=== PATIENT | male | born 1935 | race African-American/Black ===

== ENCOUNTER → 2016-02-17 | Outpatient (CLI) | payer MEDICARE, MEDICAID | LOC: RAD 13:32 | PROVIDERS: ATTEND Urology | DX: C61 Malignant neoplasm of prostate (principal); R10.2 Pelvic and perineal pain | CPT/HCPCS: 74177; 82565 ==

== ENCOUNTER 2016-06-28 08:07 | Emergency (ER) | payer MEDICARE, MEDICAID ==
[2016-06-28 08:52] LABS: ABSOLUTE EOSINOPHILS # (AUTO) 0.1 10^3/uL (0.0-0.6); ABSOLUTE LYMPHOCYTES (AUTO) 1.4 10^3/uL (0.5-4.7); ABSOLUTE MONOCYTES (AUTO) 0.5 10^3/uL (0.1-1.4); ABSOLUTE NEUT (AUTO) 2.3 10^3/uL (1.7-8.2); EOSINOPHILS % (AUTO) 1.6 % (0-6); HEMATOCRIT 30.8 % (37.9-51.0); HEMOGLOBIN 10.3 g/dL (13.5-17.0); HGB HCT DIFFERENCE 0.1; MEAN CORPUSCULAR HEMOGLOBIN 26.7 pg (27.0-33.4); MEAN CORPUSCULAR HGB CONC 33.4 g/dL (32.0-36.0); MEAN CORPUSCULAR VOLUME 80 fl (80-97); MONOCYTES % (AUTO) 10.7 % (3-13); RED BLOOD COUNT 3.85 10^6/uL (4.35-5.55); RED CELL DISTRIBUTION WIDTH 15.3 % (11.5-14.0); SEGMENTED NEUTROPHILS % (AUTO) 54.7 % (42-78); WHITE BLOOD COUNT 4.2 10^3/uL (4.0-10.5)
[2016-06-28 09:14] LABS: ALANINE AMINOTRANSFERASE 29 U/L (21-72); ALKALINE PHOSPHATASE 76 U/L (38-126); ANION GAP 9 (5-19); ASPARTATE AMINO TRANSFERASE 25 U/L (17-59); BILIRUBIN,DIRECT 0.2 mg/dL (0.0-0.4); BILIRUBIN,TOTAL 0.5 mg/dL (0.2-1.3); BLOOD UREA NITROGEN 26 mg/dL (7-20); CALCIUM 9.3 mg/dL (8.4-10.2); CARBON DIOXIDE 23 mmol/L (22-30); CHLORIDE 107 mmol/L (98-107); CREATINE KINASE 118 U/L (55-170); CREATININE RESULT 1.23 mg/dL (0.52-1.25); GLUCOSE 138 mg/dL (75-110); POTASSIUM 3.9 mmol/L (3.6-5.0); SODIUM 138.9 mmol/L (137-145); TOTAL PROTEIN 7.1 g/dL (6.3-8.2)
--- NOTE | 2016-06-28 09:19 | ER Document Report ---
ED Cardiac - General Mode of Arrival: Ambulatory Information source: Patient TRAVEL OUTSIDE OF THE [place] IN LAST 30 DAYS: No - HPI Patient complains to provider of: Chest pain, Shortness of breath Cardiac risk factors: Smoker Associated symptoms: Other - see notes above <ALIRIO ROQUE - Last Filed: 06/28/16 09:25> <CARLINE HECTOR - Last Filed: 06/30/16 10:21> - General Chief Complaint: Chest Pain Stated Complaint: CHEST PAIN Time Seen by Provider: 06/28/16 09:10 Notes: 80 year old male with history of hypertension, COPD, and LA (July 2015) presents to the ED accompanied by his home nurse complaining of chest pain that started 1 week ago. Home nurse reports that she takes care of the patient every morning and today is the first she has hear of him complaining of the chest pain. Patient also reports having a 'chest and head cold' and a cough that exacerbates the chest pain. The patient denies fever, vomiting or diarrhea, but the nurse reports the patient is increasingly short of breath (more than usual) . The patient is usually able to walk around the apartment, but now is short of breath with exertion and the nurse has noticed the patient is staggering and off balance. Patient had an LA in July 2015, but did not have a heart catheterization or stent placed. Patient's primary care provider is Dr. Kirkpatrick and he last saw him on 05/24/2016. (ALIRIO ROQUE) - Related Data Allergies/Adverse Reactions: aspirin Allergy (Verified 06/28/16 08:19) Past Medical History - General Information source: Patient - Social History Smoking Status: Current Every Day Smoker Chew tobacco use (# tins/day): No Frequency of alcohol use: None Drug Abuse: None Family History: Reviewed & Not Pertinent Patient has suicidal ideation: No Patient has homicidal ideation: No - Past Medical History Cardiac Medical History: Reports: Hx Heart Attack - July 2015, Hx Hypertension Pulmonary Medical History: Reports: Hx COPD Endocrine Medical History: Reports: Hx Diabetes Mellitus Type 2 Renal/ Medical History: Denies: Hx Peritoneal Dialysis Psychiatric Medical History: Denies: Hx Depression - Immunizations Hx Diphtheria, Pertussis, Tetanus Vaccination: No Hx Pneumococcal Vaccination: 12/05/14 <ALIRIO ROQUE - Last Filed: 06/28/16 09:25> Review of Systems - Review of Systems Constitutional: See HPI, Recent illness - 'chest and head cold'. denies: Fever EENT: No symptoms reported Cardiovascular: See HPI, Chest pain Respiratory: See HPI, Cough, Short of breath Gastrointestinal: No symptoms reported. denies: Diarrhea, Nausea, Vomiting Genitourinary: No symptoms reported Male Genitourinary: No symptoms reported Musculoskeletal: No symptoms reported Skin: No symptoms reported Hematologic/Lymphatic: No symptoms reported Neurological/Psychological: See HPI, Gait changes - 'staggering' -: Yes All other systems reviewed and negative <ALIRIO ROQUE - Last Filed: 06/28/16 09:25> Physical Exam - General General appearance: Alert In distress: None - HEENT Head: Normocephalic, Atraumatic Eyes: Normal Extraocular movements intact: Yes Pupils: PERRL - Respiratory Respiratory status: No respiratory distress Chest status: Nontender Breath sounds: Rhonchi - bilateral Chest palpation: Normal - Cardiovascular Rhythm: Regular Heart sounds: Normal auscultation - Abdominal Inspection: Normal Distension: No distension Tenderness: Nontender - Back Back: Normal - Extremities General upper extremity: Normal inspection, Normal ROM General lower extremity: Normal inspection, Normal ROM - Neurological Neuro grossly intact: Yes Cognition: Normal Orientation: AAOx4 [place] Coma Scale Eye Opening: Spontaneous [place] Coma Scale Verbal: Oriented [place] Coma Scale Motor: Obeys Commands [place] Coma Scale Total: 15 Speech: Normal - Psychological Associated symptoms: Normal affect, Normal mood - Skin Skin Temperature: Warm Skin Moisture: Dry Skin Color: Normal <ALIRIO ROQUE - Last Filed: 06/28/16 09:25> Course - Laboratory Result Diagrams: 06/28/16 08:35 06/28/16 08:35 <ALIRIO ROQUE - Last Filed: 06/28/16 09:25> - Laboratory Result Diagrams: 06/28/16 08:35 06/28/16 08:35 <CARLINE HECTOR - Last Filed: 06/30/16 10:21> - Re-evaluation Re-evalutation: 06/28/16 12:27 Patient presented to the emergency department with a chief complaint of cough "chest congestion and head cold. He did tell his family members that it has been going on for a week or so. His caregiver who sees him in the morning is at the bedside initially and then his sister. At the bedside he is coughing and has some bilateral rhonchi. Blood pressure on the chart to 96/71 immediately upon assessment in the bedside. Blood pressure was 134/61 afebrile not tachycardic no respiratory distress is not tachypneic with a 99% O2 sat on room air. No overt failure rales or lower extremity peripheral edema There is swelling no history of DVT or pulmonary emboli. EKG sinus at 60 bpm with no acute ST segment elevation or depression. Chest x-ray COPD laboratory evaluation including troponin negative no white count elevation CT of the chest COPD no acute pulmonary emboli. Patient complained of chest pain with coughing only intermittent for about 5-6 days denies any chest pain currently is not exertional in nature as it sharp and stabbing when he takes a deep breath or cough. At this point patient is hemodynamically stable no active concerns for sepsis COPD exacerbation no pulmonary emboli not concerned at this moment is acute cardiac event or unstable angina. Will discharge on albuterol prednisone 1-2 day follow-up primary care physician and discuss specific reasons for ED return sooner (CARLINE HECTOR) - Vital Signs Vital signs: Temp Pulse Resp BP Pulse Ox 97.8 F 67 16 157/62 H 98 06/28/16 12:37 06/28/16 08:20 06/28/16 12:38 06/28/16 12:28 06/28/16 12:38 - Laboratory Laboratory results interpreted by me: 06/28/16 06/28/16 08:35 08:35 RBC 3.85 L Hgb 10.3 L Hct 30.8 L MCH 26.7 L RDW 15.3 H BUN 26 H Est GFR (Non-Af Amer) 56 L Glucose 138 H Discharge <ALIRIO ROQUE - Last Filed: 06/28/16 09:25> <CARLINE HECTOR - Last Filed: 06/30/16 10:21> - Discharge Clinical Impression: upper respiratory infection, chest pain nonspecific COPD (chronic obstructive pulmonary disease) Qualifiers: COPD type: unspecified COPD Qualified Code(s): J44.9 - Chronic obstructive pulmonary disease, unspecified Condition: Stable Disposition: HOME, SELF-CARE Additional Instructions: Chronic Obstructive Lung Disease You have chronic obstructive lung disease (COPD). The symptoms come from emphysema (damage to small airways, with trapping of air in large sacks in the lung) and chronic bronchitis (repeated infection and damage to larger airways). The cause is almost always cigarette smoking, although dust exposure, asthma, and infections contribute. You should avoid fumes, dust, and smoke (especially tobacco smoke). Your condition will flare from time to time. There is no cure, but the symptoms can be treated. Bronchodilators (asthma medicine) are often helpful. Antibiotics help when infection is present. When shortness of breath is severe, we may prescribe cortisone medication. If medicine doesn't help enough, we can arrange for you to have an oxygen tank at home. Notify your doctor at once if sputum becomes thick, foul, or bloody, if you develop a fever or chest pain, or if your shortness of breath worsens. Prescriptions: Prednisone [Deltasone 20 mg Tablet] 3 tab PO DAILY 5 Days Referrals: AYLA KIRKPATRICK MD [Primary Care Provider] - Follow up as needed Scribe Attestation: 06/28/16 12:26 I personally performed the services described in the documentation reviewed the documentation recorded by my scribe in my presence and it accurately and completely records my words and actions (CARLINE HECTOR) Scribe Documentation - Scribe Written by Buster:: Buster Stewart, 06/28/2016 0934 acting as scribe for :: Johnathan <ALIRIO ROQUE - Last Filed: 06/28/16 09:25>
[2016-06-28 09:27] LABS: CREATINE KINASE MB 1.52 ng/mL (<4.55); TROPONIN I < 0.012 ng/mL
[2016-06-28] MEDS ORDERED: METHYLPREDNISOLONE INJ 125 MG/2 ML SDV IV ONE (09:36)
--- NOTE | 2016-06-28 10:38 | EKG REPORT ---
SEVERITY:- BORDERLINE ECG - SINUS RHYTHM LEFT AXIS DEVIATION BORDERLINE T ABNORMALITIES, INFERIOR LEADS : Confirmed by: Jaylyn Richards MD 28-Jun-2016 10:37:25
[2016-06-28 12:29] VITALS: BP 157/62
== END 2016-06-28 12:44 | disposition home or self-care (01) ==
LOC: ER 08:07
DX: J06.9 Acute upper respiratory infection, unspecified (principal); J44.9 Chronic obstructive pulmonary disease, unspecified; R07.9 Chest pain, unspecified; R06.02 Shortness of breath; I10 Essential (primary) hypertension; I25.2 Old myocardial infarction; R05 Cough; R26.0 Ataxic gait; R26.81 Unsteadiness on feet; E11.9 Type 2 diabetes mellitus without complications; F17.200 Nicotine dependence, unspecified, uncomplicated; Z88.6 Allergy status to analgesic agent
CPT/HCPCS: 93005; 99285; 96374; 36415; 82553; 82550; 85025; 80053; 84484; 71010; 71275; 93010; J2930

== ENCOUNTER 2016-09-04 13:34 | Emergency (ER) | payer MEDICARE, MEDICAID ==
--- NOTE | 2016-09-04 14:31 | ER Document Report ---
ED Fall - General Chief Complaint: Fall Stated Complaint: FALL/HEAD INJURY Time Seen by Provider: 09/04/16 14:23 Notes: Patient tripped on a possible approximately 9 AM this morning. Initially an ambulance was called the patient would not go to the ambulance because they were unable to assure him that he can get a ride home. Patient states that there was no loss of consciousness. He is brought in by a neighbor. Neighbor states he does not know the patient well but he has seen walking around the neighborhood. There is no apparent new deficits or confusion. Patient does complain of headache. Denies any back pain, chest pain, abdominal pain, extremity pain. He denies neck pain. He states his only pain is a headache. He states he thinks he may be on a blood thinner but does not know the name of it. There is been no vomiting. Patient's pain is constant. It is moderate. It is an aching sensation. It does not radiate. Nothing makes it better or worse. TRAVEL OUTSIDE OF THE [place] IN LAST 30 DAYS: No - Related data Allergies/Adverse Reactions: aspirin Allergy (Verified 09/04/16 13:44) Past Medical History - General Information source: Patient, Friend - Social History Smoking Status: Current Every Day Smoker Frequency of alcohol use: None Drug Abuse: None Family History: Reviewed & Not Pertinent Patient has suicidal ideation: No Patient has homicidal ideation: No - Past Medical History Cardiac Medical History: Reports: Hx Heart Attack - July 2015, Hx Hypertension Pulmonary Medical History: Reports: Hx COPD Endocrine Medical History: Reports: Hx Diabetes Mellitus Type 2 Renal/ Medical History: Denies: Hx Peritoneal Dialysis Psychiatric Medical History: Denies: Hx Depression - Immunizations Hx Diphtheria, Pertussis, Tetanus Vaccination: No Hx Pneumococcal Vaccination: 12/05/14 Review of Systems - Review of Systems Constitutional: denies: Chills, Fever Cardiovascular: denies: Chest pain, Palpitations Respiratory: denies: Cough, Short of breath Gastrointestinal: denies: Abdominal pain, Diarrhea, Vomiting Neurological/Psychological: Confusion -: Yes All other systems reviewed and negative Physical Exam - Vital signs Vitals: Temp Pulse Resp BP Pulse Ox 98.6 F 69 16 135/82 H 97 09/04/16 13:45 09/04/16 13:45 09/04/16 13:45 09/04/16 13:45 09/04/16 13:45 - General General appearance: Appears well, Alert In distress: None - HEENT Head: Normocephalic, Abrasions, Other - There is a large mildly tender abrasion of the central forehead. Bleeding well controlled. Conjunctiva: Normal Pupils: PERRL Nasal: Normal Mouth/Lips: Normal Mucous membranes: Moist Pharynx: Normal Neck: Normal - Respiratory Respiratory status: No respiratory distress Chest status: Nontender Breath sounds: Normal Chest palpation: Normal - Cardiovascular Rhythm: Regular Heart sounds: Normal auscultation Murmur: No - Abdominal Inspection: Normal Distension: No distension Bowel sounds: Normal Tenderness: Nontender Organomegaly: No organomegaly - Back Back: Normal, Nontender - Extremities General upper extremity: Normal inspection, Nontender, Normal color, Normal ROM , Normal temperature General lower extremity: Normal inspection, Nontender, Normal color, Normal ROM , Normal temperature, Normal weight bearing. No: Alondra's sign - Neurological Cognition: Confused Orientation: Disoriented to time [place] Coma Scale Eye Opening: Spontaneous [place] Coma Scale Verbal: Confused [place] Coma Scale Motor: Obeys Commands [place] Coma Scale Total: 14 Speech: Normal Cranial nerves: Normal Cerebellar coordination: Normal Motor strength normal: LUE, RUE, LLE, RLE - Psychological Associated symptoms: Normal affect, Normal mood Course - Re-evaluation Re-evalutation: 09/04/16 15:30 pt has been stable throughout ED course. neighbor here and will take pt home. pt has home care per neighbor. - Vital Signs Vital signs: Temp Pulse Resp BP Pulse Ox 98.6 F 69 16 135/82 H 97 09/04/16 13:45 09/04/16 13:45 09/04/16 13:45 09/04/16 13:45 09/04/16 13:45 - Laboratory Result Diagrams: 09/04/16 14:52 09/04/16 14:52 Laboratory results interpreted by me: 09/04/16 14:52 WBC 3.4 L RBC 3.53 L Hgb 9.4 L Hct 28.7 L MCH 26.8 L RDW 14.8 H Discharge - Discharge Condition: Stable Disposition: HOME, SELF-CARE Instructions: Head Injury Precautions ([facility]) Additional Instructions: Please call your primary doctor today to schedule a recheck as soon as possible.
[2016-09-04 15:03] LABS: ABSOLUTE EOSINOPHILS # (AUTO) 0.1 10^3/uL (0.0-0.6); ABSOLUTE LYMPHOCYTES (AUTO) 1.3 10^3/uL (0.5-4.7); ABSOLUTE MONOCYTES (AUTO) 0.4 10^3/uL (0.1-1.4); ABSOLUTE NEUT (AUTO) 1.7 10^3/uL (1.7-8.2); BASOPHILS % (AUTO) 0.8 % (0-2); EOSINOPHILS % (AUTO) 1.9 % (0-6); HEMATOCRIT 28.7 % (37.9-51.0); HEMOGLOBIN 9.4 g/dL (13.5-17.0); HGB HCT DIFFERENCE -0.5; LYMPHOCYTES % (AUTO) 37.5 % (13-45); MEAN CORPUSCULAR HEMOGLOBIN 26.8 pg (27.0-33.4); MEAN CORPUSCULAR HGB CONC 32.9 g/dL (32.0-36.0); MEAN CORPUSCULAR VOLUME 81 fl (80-97); RED BLOOD COUNT 3.53 10^6/uL (4.35-5.55); RED CELL DISTRIBUTION WIDTH 14.8 % (11.5-14.0); SEGMENTED NEUTROPHILS % (AUTO) 48.8 % (42-78); WHITE BLOOD COUNT 3.4 10^3/uL (4.0-10.5)
--- NOTE | 2016-09-04 15:13 | RADIOLOGY REPORT (SQ) ---
EXAM DESCRIPTION: CT HEAD WITHOUT COMPLETED DATE/TIME: 09/04/2016 3:04 pm REASON FOR STUDY: fall/tai/?blood thinner COMPARISON: None. TECHNIQUE: Axial images acquired through the brain without intravenous contrast. Images reviewed wi th bone, brain and subdural windows. Images stored on PACS. All CT scanners at this facility use dose modulation, iterative reconstruction, and/or weight based d osing when appropriate to reduce radiation dose to as low as reasonably achievable (ALARA). [facility]: Dose Right [facility]: CareDose [facility]: Dose Right [facility]: Teradose 4D [facility]: [employer] RADIATION DOSE: mGy. LIMITATIONS: None. FINDINGS: VENTRICLES: Prominent. CEREBRUM: No masses. No hemorrhage. No midline shift. Areas of low density in the white matter mos t likely due to chronic micro-vascular ischemic change. No evidence for acute infarction. CEREBELLUM: No masses. No hemorrhage. No alteration of density. No evidence for acute infarction. EXTRAAXIAL SPACES: Mild age-related involutional change. No fluid collections. No masses. ORBITS AND GLOBE: No intra- or extraconal masses. Normal contour of globe without masses. CALVARIUM: No fracture. PARANASAL SINUSES: No fluid or mucosal thickening. SOFT TISSUES: No mass or hematoma. OTHER: No other significant finding. IMPRESSION: MILD CHRONIC CHANGES OF ATROPHY AND MICROVASCULAR ISCHEMIA. NO ACUTE PROCESS. TECHNICAL DOCUMENTATION: JOB ID: [id number] Quality ID # [id number]: Final reports with documentation of one or more dose reduction techniques (e.g., Au tomated exposure control, adjustment of the mA and/or kV according to patient size, use of iterative reconstruction technique) 2010 [employer]- All Rights Reserved
[2016-09-04 15:16] LABS: ANION GAP 11 (5-19); BLOOD UREA NITROGEN 17 mg/dL (7-20); CALCIUM 8.9 mg/dL (8.4-10.2); CARBON DIOXIDE 24 mmol/L (22-30); CHLORIDE 104 mmol/L (98-107); CREATININE RESULT 1.15 mg/dL (0.52-1.25); GLUCOSE 75 mg/dL (75-110); POTASSIUM 4.1 mmol/L (3.6-5.0); SODIUM 139.4 mmol/L (137-145)
[2016-09-04 15:25] LABS: APPEARANCE,URINE CLEAR; BILIRUBIN,URINE NEGATIVE (NEGATIVE); GLUCOSE, URINE NEGATIVE (NEGATIVE); KETONES,URINE NEGATIVE (NEGATIVE); LEUKOCYTE ESTERASE,URINE NEGATIVE (NEGATIVE); NITRITE,URINE NEGATIVE (NEGATIVE); PROTEIN,URINE NEGATIVE (NEGATIVE); URINE SPECIFIC GRAVITY 1.016; UROBILINOGEN,URINE NEGATIVE mg/dL (<2.0)
[2016-09-04] MEDS ORDERED: TRAMADOL HCL 50 MG TABLET PO ONE (15:35)
[2016-09-04 16:03] VITALS: BP 160/63
== END 2016-09-04 15:50 | disposition home or self-care (01) ==
LOC: ER 13:34
DX: S09.90XA Unspecified injury of head, initial encounter (principal); W01.0XXA Fall on same level from slipping, tripping and stumbling without subsequent striking against object, initial encounter; F17.200 Nicotine dependence, unspecified, uncomplicated; I25.2 Old myocardial infarction; R41.0 Disorientation, unspecified
CPT/HCPCS: 99284; 36415; 85025; 80048; 81001; 70450; A9270

== ENCOUNTER 2016-12-19 06:23 | Day surgery (SDC) | payer MEDICARE, MEDICAID ==
[~2016-12-19 06:23] MED LIST: KETOROLAC TROMETHAMINE 0.45% 4 DROP/0.4 ML DROPERETTE OS PRN
[2016-12-19] MEDS: TETRACAINE HCL 0.5% OPH SOLN 0.6 ML DROPERETTE OS PRN ×3 (06:50→07:33)
[2016-12-19] MEDS: TROPICAMIDE 1% OPH SOLN 3 ML OS PRN ×3 (06:51→07:17)
[2016-12-19] MEDS: CYCLOPENTOLATE 0.2%/PHENYLEPHRINE 1% OPH SOLN 2 ML OS PRN ×3 (06:51→07:17)
[2016-12-19] MEDS: BESIFLOXACIN HCL 0.6% OPH SUSP 5 ML BOTTLE OS PRN ×4 (06:51→08:12)
[2016-12-19] MEDS ORDERED: MIDAZOLAM 2 MG/2 ML INJ ONE (06:56)
[2016-12-19] MEDS ORDERED: FENTANYL CITRATE INJ/PF 100 MCG/2 ML AMPUL ONE (06:56)
[2016-12-19] MEDS ORDERED: DEXTROSE 50%-WATER 25 GM/50 ML DISP.SYRIN IV ONE (07:02)
[2016-12-19] MEDS ORDERED: EPINEPHRINE INJ/PF 1 MG/1 ML AMPULE ONE (07:04)
[2016-12-19] MEDS ORDERED: LIDOCAINE 1% INJ-PF (10 MG/ML) 30 ML SDV ONE (07:05)
[2016-12-19] MEDS ORDERED: CHONDR SU A NA/HYALUR INTRAOC KIT (SURGICARE) ONE (07:05)
[2016-12-19] MEDS ORDERED: CHONDR SU A NA/HYALUR SOD 0.5 ML DISP.SYRIN ONE (07:52)
[2016-12-19] MEDS ORDERED: ACETYLCHOLINE CHLORIDE 20 MG/2 ML KIT ONE (08:04)
[2016-12-19] MEDS: TOBRAMYCIN SULFATE/DEXAMETH OPH OINTMENT 3.5 GM ONE ×2 (08:12)
[2016-12-19] MEDS ORDERED: ACETAZOLAMIDE SODIUM INJ 500 MG VIAL ONE (08:14)
[2016-12-19] MEDS ORDERED: WATER FOR INJECTION,STERILE 10 ML SDV ONE (08:17)
== END 2016-12-19 08:58 | disposition home or self-care (01) ==
LOC: SC 06:23
PROVIDERS: ATTEND Ophthalmology
PROC: 08RK3JZ Replacement of Left Lens with Synthetic Substitute, Percutaneous Approach (ICD-10-PCS; principal; 2016-12-19 07:30)
DX: H25.12 Age-related nuclear cataract, left eye (principal); H40.1111 Primary open-angle glaucoma, right eye, mild stage; E11.9 Type 2 diabetes mellitus without complications; K21.9 Gastro-esophageal reflux disease without esophagitis; I10 Essential (primary) hypertension; E78.00 Pure hypercholesterolemia, unspecified; N40.0 Benign prostatic hyperplasia without lower urinary tract symptoms; Z79.84 Long term (current) use of oral hypoglycemic drugs; Z79.899 Other long term (current) drug therapy; Z88.6 Allergy status to analgesic agent; Z85.46 Personal history of malignant neoplasm of prostate
CPT/HCPCS: 82962; 66984; V2632; J1120; J3490 ×7; J2250; A9270; J0171; J3010; 142

== ENCOUNTER 2017-01-16 09:06 | Day surgery (SDC) | payer MEDICARE, MEDICAID ==
[~2017-01-16 09:06] MED LIST changes: +KETOROLAC TROMETHAMINE 0.45% 4 DROP/0.4 ML DROPERETTE OD PRN; -KETOROLAC TROMETHAMINE 0.45% 4 DROP/0.4 ML DROPERETTE OS PRN; +MIDAZOLAM 2 MG/2 ML INJ ONE
[2017-01-16] MEDS ORDERED: PHENYLEPHRINE/KETOROLAC 1%-0.3% 4 ML VIAL ONE (09:25)
[2017-01-16] MEDS ORDERED: CHONDR SU A NA/HYALUR INTRAOC KIT (SURGICARE) ONE (09:25)
[2017-01-16] MEDS ORDERED: LIDOCAINE 1% INJ-PF (10 MG/ML) 30 ML SDV ONE (09:25)
[2017-01-16] MEDS: TETRACAINE HCL 0.5% OPH SOLN 0.6 ML DROPERETTE OD PRN ×3 (09:33→09:56)
[2017-01-16] MEDS: TROPICAMIDE 1% OPH SOLN 3 ML OD PRN ×3 (09:33→09:54)
[2017-01-16] MEDS: CYCLOPENTOLATE 0.2%/PHENYLEPHRINE 1% OPH SOLN 2 ML OD PRN ×3 (09:34→09:54)
[2017-01-16] MEDS: BESIFLOXACIN HCL 0.6% OPH SUSP 5 ML BOTTLE OD PRN ×4 (09:34→10:26)
[2017-01-16] MEDS: TOBRAMYCIN SULFATE/DEXAMETH OPH OINTMENT 3.5 GM ONE ×2 (10:26)
[2017-01-16] MEDS ORDERED: MIDAZOLAM 2 MG/2 ML INJ ONE (11:10)
== END 2017-01-16 11:17 | disposition home or self-care (01) ==
LOC: SC 09:06
PROVIDERS: ATTEND Ophthalmology
PROC: 089230Z Drainage of Right Anterior Chamber with Drainage Device, Percutaneous Approach (ICD-10-PCS; 2017-01-16)
PROC: 08RJ3JZ Replacement of Right Lens with Synthetic Substitute, Percutaneous Approach (ICD-10-PCS; principal; 2017-01-16 09:45)
DX: H25.11 Age-related nuclear cataract, right eye (principal); H40.1111 Primary open-angle glaucoma, right eye, mild stage; Z98.42 Cataract extraction status, left eye; K21.9 Gastro-esophageal reflux disease without esophagitis; E11.9 Type 2 diabetes mellitus without complications; I10 Essential (primary) hypertension; M19.90 Unspecified osteoarthritis, unspecified site; F17.210 Nicotine dependence, cigarettes, uncomplicated; Z79.899 Other long term (current) drug therapy; Z79.84 Long term (current) use of oral hypoglycemic drugs; Z88.6 Allergy status to analgesic agent; Z85.46 Personal history of malignant neoplasm of prostate
CPT/HCPCS: 66984; 0191T; 82962; C1783; V2630; J2250; J3490 ×3; A9270; C9447; 142

== ENCOUNTER 2017-06-20 11:36 | Inpatient (IN) | payer MEDICARE, MEDICAID ==
--- NOTE | 2017-06-20 12:24 | ER Document Report ---
ED Extremity Problem, Lower - General Chief Complaint: Ankle Pain Stated Complaint: DIFFICULTY WALKING Time Seen by Provider: 06/20/17 11:53 Notes: 81-year-old male to emergency department complaining of bilateral foot and ankle pain. Patient is a poor historian. By report he called EMS because his feet were hurting. When EMS arrived the smelled smoke in the house. Patient was awake and alert and in no acute distress. Patient transported here for evaluation. Carboxyhemoglobin ordered on arrival. Patient denies any respiratory distress. Complains of mostly having pain in the left ankle. Also complaining of pain in the right foot and ankle. TRAVEL OUTSIDE OF THE [place] IN LAST 30 DAYS: No - HPI Patient complains to provider of: Pain Location: Ankle, Foot Where: Home - Related Data Allergies/Adverse Reactions: aspirin Allergy (Verified 06/20/17 11:56) Past Medical History - General Information source: Patient - Social History Smoking Status: Smoker,Current Status Unk Cigarette use (# per day): No Frequency of alcohol use: None Drug Abuse: None Lives with: Alone Family History: Reviewed & Not Pertinent - Past Medical History Cardiac Medical History: Reports: Hx Hypertension Denies: Hx Heart Attack Pulmonary Medical History: Reports: Hx COPD Denies: Hx Asthma Neurological Medical History: Denies: Hx Cerebrovascular Accident, Hx Seizures Endocrine Medical History: Reports: Hx Diabetes Mellitus Type 2 Renal/ Medical History: Denies: Hx Peritoneal Dialysis GI Medical History: Denies: Hx Hepatitis, Hx Hiatal Hernia, Hx Ulcer Psychiatric Medical History: Denies: Hx Depression Infectious Medical History: Denies: Hx Hepatitis Past Surgical History: Denies: Hx Open Heart Surgery, Hx Pacemaker - Immunizations Hx Diphtheria, Pertussis, Tetanus Vaccination: No Hx Pneumococcal Vaccination: 12/05/14 Review of Systems - Review of Systems Constitutional: denies: Fever, Malaise, Weakness EENT: denies: Double vision, Throat pain, Vertigo Cardiovascular: denies: Chest pain, Palpitations, Heart racing, Orthopnea Respiratory: denies: Cough, Hurts to breathe, Short of breath, Sputum, Wheezing Gastrointestinal: denies: Abdominal pain, Diarrhea, Nausea, Vomiting Genitourinary: denies: Burning, Dysuria, Discharge Musculoskeletal: See HPI, Ankle swelling, Other - Ankle pain, foot pain bilaterally. denies: Back pain, Gout, Joint pain Skin: denies: Dryness, Lesions, Lumps, Rash Hematologic/Lymphatic: denies: Anemia, Blood clots, Easy bleeding, Easy bruising Neurological/Psychological: denies: Confusion, Weakness, Numbness Physical Exam - Vital signs Vitals: Temp Pulse Resp BP Pulse Ox 98.0 F 74 16 133/82 H 97 06/20/17 11:55 06/20/17 11:55 06/20/17 11:55 06/20/17 11:55 06/20/17 11:55 Interpretation: Normal - General General appearance: Appears well, Alert - Respiratory Respiratory status: No respiratory distress Chest status: Nontender Breath sounds: Normal Chest palpation: Normal - Cardiovascular Rhythm: Regular Heart sounds: Normal auscultation Murmur: No - Abdominal Inspection: Normal Distension: No distension Bowel sounds: Normal Tenderness: Nontender Organomegaly: No organomegaly - Extremities General upper extremity: Normal inspection, Nontender, Normal color, Normal ROM , Normal temperature General lower extremity: Normal inspection, Nontender, Tender, Normal color, Normal ROM, Normal temperature, Other - Mild tenderness to palpation bilateral ankles, bilateral plantar and dorsal foot. Obvious deformity. No significant edema.. No: Edema, Alondra's sign - Neurological Neuro grossly intact: Yes Cognition: Normal Orientation: AAOx4 [place] Coma Scale Eye Opening: Spontaneous [place] Coma Scale Verbal: Oriented [place] Coma Scale Motor: Obeys Commands [place] Coma Scale Total: 15 Speech: Normal Motor strength normal: LUE, RUE, LLE, RLE Sensory: Normal - Psychological Associated symptoms: Normal affect, Normal mood - Skin Skin Temperature: Warm Skin Moisture: Dry Skin Color: Normal Course - Re-evaluation Re-evalutation: 06/20/17 13:42 Good palpable pulses in the bilateral lower extremities. X-rays unremarkable. Carboxyhemoglobin fairly unremarkable. 06/20/17 14:10 X-rays do not show any fracture. Of note there is some radiopaque foreign body seen. Examined where the reported foreign bodies arm patient is not tender there. Has some mild tenderness to palpation of the medial malleolus of the left ankle. No warmth. No swelling. No signs of recent injury wounds. When asked patient states that years ago he had some injury to his foot and thinks that there was some metal but does not really remember what happened. Stoma find nothing further. Has good bounding pulses present in both feet. Will recommend close follow-up with his regular doctor for further evaluation if symptoms persist. - Vital Signs Vital signs: Temp Pulse Resp BP Pulse Ox 98.0 F 74 16 133/82 H 98 06/20/17 11:55 06/20/17 11:55 06/20/17 11:55 06/20/17 11:55 06/20/17 13:05 - Laboratory Laboratory results interpreted by me: 06/20/17 12:15 Carboxyhemoglobin 2.9 H Discharge - Discharge Clinical Impression: Bilateral foot pain Condition: Good Disposition: HOME, SELF-CARE Instructions: Foreign Body ([facility]), Sprained Ankle ([facility]) Additional Instructions: The x-rays showed a few small metallic foreign bodies in the left foot. There was no significant swelling or signs of recent injury to the foot. Likely these have been there for quite some time. If symptoms persist please follow- up with your regular doctor for repeat evaluation as a specialist may be needed to evaluate for possible retained foreign bodies. Referrals: AYLA KIRKPATRICK MD [Primary Care Provider] - Follow up in 3-5 days
--- NOTE | 2017-06-20 14:01 | RADIOLOGY REPORT (SQ) ---
EXAM DESCRIPTION: ANKLE BILATERAL 3 VIEWS MIN COMPLETED DATE/TIME: 06/20/2017 1:36 pm REASON FOR STUDY: pain COMPARISON: None. NUMBER OF VIEWS: Three views. TECHNIQUE: AP, lateral, and oblique radiographic images acquired of the right and left ankle. LIMITATIONS: None. FINDINGS: MINERALIZATION: Normal. BONES: No acute fracture or dislocation. No worrisome bone lesions. JOINTS: No effusions. SOFT TISSUES: Linear metallic densities are identified in the soft tissues inferior to the tarsal bon es on the left consistent with radiopaque foreign bodies. OTHER: No other significant finding. IMPRESSION: No acute fracture dislocation. No significant degenerative changes. Radiopaque foreign bodies in the soft tissues on the left as noted above. Other findings as noted above TECHNICAL DOCUMENTATION: JOB ID: [id number] [employer]- All Rights Reserved Reading location - IP/workstation name: [email or web address]
--- NOTE | 2017-06-20 14:03 | RADIOLOGY REPORT (SQ) ---
EXAM DESCRIPTION: FOOT BILATERAL 3 VIEWS COMPLETED DATE/TIME: 06/20/2017 1:36 pm REASON FOR STUDY: pain COMPARISON: None. NUMBER OF VIEWS: Three views. TECHNIQUE: AP, lateral and oblique radiographic images acquired of the right and left foot. LIMITATIONS: None. FINDINGS: MINERALIZATION: Normal. BONES: No acute fracture or dislocation. No worrisome bone lesions. JOINTS: No effusions. SOFT TISSUES: Linear metallic foreign bodies are identified in the soft tissues inferior to the tarsa l bones on the left. No other significant soft tissue findings. OTHER: No other significant finding. IMPRESSION: No acute fracture dislocation. No significant degenerative changes. Radiopaque foreign bodies in the soft tissues of the left foot as noted above. Other findings as noted above TECHNICAL DOCUMENTATION: JOB ID: [id number] [employer]- All Rights Reserved Reading location - IP/workstation name: [email or web address]
[2017-06-20] MEDS ORDERED: ACETAMINOPHEN 325 MG TABLET PO ONE (14:34)
[2017-06-20 15:46] LABS: ABSOLUTE BASOPHILS # (AUTO) 0.1 10^3/uL (0.0-0.2); ABSOLUTE EOSINOPHILS # (AUTO) 0.1 10^3/uL (0.0-0.6); ABSOLUTE LYMPHOCYTES (AUTO) 1.7 10^3/uL (0.5-4.7); ABSOLUTE MONOCYTES (AUTO) 0.6 10^3/uL (0.1-1.4); ABSOLUTE NEUT (AUTO) 3.2 10^3/uL (1.7-8.2); EOSINOPHILS % (AUTO) 1.7 % (0-6); HEMATOCRIT 34.1 % (37.9-51.0); HEMOGLOBIN 11.1 g/dL (13.5-17.0); LYMPHOCYTES % (AUTO) 30.7 % (13-45); MEAN CORPUSCULAR HEMOGLOBIN 26.8 pg (27.0-33.4); MEAN CORPUSCULAR HGB CONC 32.6 g/dL (32.0-36.0); MEAN CORPUSCULAR VOLUME 82 fl (80-97); MONOCYTES % (AUTO) 10.5 % (3-13); PLATELET COUNT 211 10^3/uL (150-450); RED BLOOD COUNT 4.16 10^6/uL (4.35-5.55); RED CELL DISTRIBUTION WIDTH 14.8 % (11.5-14.0); SEGMENTED NEUTROPHILS % (AUTO) 56.1 % (42-78); TOTAL CELLS COUNTED % (AUTO) 100 %; WHITE BLOOD COUNT 5.6 10^3/uL (4.0-10.5)
[2017-06-20 16:18] LABS: ALANINE AMINOTRANSFERASE 21 U/L (21-72); ALBUMIN 4.5 g/dL (3.5-5.0); ALKALINE PHOSPHATASE 77 U/L (38-126); ANION GAP 16 (5-19); ASPARTATE AMINO TRANSFERASE 27 U/L (17-59); BILIRUBIN,DIRECT 0.4 mg/dL (0.0-0.4); BILIRUBIN,TOTAL 0.4 mg/dL (0.2-1.3); BLOOD UREA NITROGEN 33 mg/dL (7-20); CALCIUM 9.5 mg/dL (8.4-10.2); CARBON DIOXIDE 17 mmol/L (22-30); CHLORIDE 107 mmol/L (98-107); CREATINE KINASE 177 U/L (55-170); GLUCOSE 75 mg/dL (75-110); POTASSIUM 5.2 mmol/L (3.6-5.0); SODIUM 140.4 mmol/L (137-145)
--- NOTE | 2017-06-20 19:28 | EKG REPORT ---
SEVERITY:- ABNORMAL ECG - SINUS RHYTHM LEFT ANTERIOR FASCICULAR BLOCK : Confirmed by: Vicne Martini MD 20-Jun-2017 19:28:00
--- NOTE | 2017-06-20 20:19 | PDOC H&P ---
History of Present Illness Admission Date/PCP: 06/20/17 15:07 AYLA CASIMIRO Patient complains of: Pain in Left Foot and Ankle; Difficulty walking History of Present Illness: JUDY DOBBS JR is a 81 year old male known to my practice brought to the ED via EMS due to difficult walking and pain in left foot and ankle since yesterday. Patient and caregiver at bedside narrated that his washing machine was malfunctioning at home. Due to patient impatient attitude he decided to take the washing machine out of his apartment by himself. In the process he tripped over the appliance cord, fell and sustained injury to his left foot. He was not able to walk thereafter and has been crawling on his four extremities within his apartment. He alerted his caregiver and she subsequently activate EMS service. His evaluation in the ED did not reveal any fracture or overt soft tissue injury. His laboratory evaluation did revealed elevated carboxyhemoglobin level and acute kidney injury indices. Attempt to discharge him home was not possible due to persistent pain in left foot and difficulty with walking. His morbidities include Diabetes mellitus type 2, Hypertension, Hyperlipidemia, COPD, Prostate cancer on q3 months Lupron therapy, GERD, Osteoarthritis, and recurrent falls. Past Medical History Cardiac Medical History: Reports: Hypertension Denies: Myocardial Infarction Pulmonary Medical History: Reports: Chronic Obstructive Pulmonary Disease (COPD) Denies: Asthma Neurological Medical History: Denies: Seizures Endocrine Medical History: Reports: Diabetes Mellitus Type 2 GI Medical History: Denies: Hepatitis, Hiatal Hernia Psychiatric Medical History: Denies: Depression Hematology: Denies: Anemia, Sickle Cell Disease Past Surgical History Past Surgical History: Denies: Pacemaker Social History Lives with: Alone Smoking Status: Current Every Day Smoker Frequency of Alcohol Use: Social Hx Recreational Drug Use: No Drugs: None Hx Prescription Drug Abuse: No Family History Family History: Reviewed & Not Pertinent Parental Family History Reviewed: Yes Children Family History Reviewed: Yes Sibling(s) Family History Reviewed.: Yes Medication/Allergy Home Medications: Gabapentin 1 cap PO Q8H 08/09/15 Leuprolide Acetate [Lupron Depot] 22.5 mg IM Q90D 08/09/15 Levocetirizine Dihydrochloride 1 tab PO DAILY 08/09/15 Metformin HCl [Metformin HCl ER] 1 tab PO DAILY 08/09/15 Nateglinide 1 tab PO MEALS 06/28/16 Nut.tx.gluc.intoler,Lac-Fr,Soy [Glucerna Advance] 237 ml PO BID 08/09/15 Pantoprazole Sodium 1 tab PO DAILY 08/09/15 Ramipril 1 cap PO DAILY 08/09/15 Simvastatin 1 tab PO QHS 08/09/15 Tolterodine Tartrate [Tolterodine Tartrate ER] 1 cap PO DAILY 08/09/15 Travoprost [Travatan Z] 1 drop OU QHS 08/09/15 Trazodone HCl 1 tab PO QHS 08/09/15 Nitroglycerin [Nitrostat 0.4 mg (1/150 Gr) Tabs 25/Bottle] 1 tab SL Q5MP PRN #1 bottle 08/11/15 Prednisone [Deltasone 20 mg Tablet] 3 tab PO DAILY 5 Days tablet 06/28/16 Tramadol HCl [Ultram 50 mg Tablet] 50 mg PO Q4HP PRN #10 tab 09/04/16 Allergies/Adverse Reactions: aspirin Allergy (Verified 06/20/17 11:56) Review of Systems Constitutional: PRESENT: weakness - generalized weakness Eyes: PRESENT: visual disturbances Ears: PRESENT: hearing changes Nose, Mouth, and Throat: ABSENT: as per HPI, headache(s), mouth pain, sore throat, vertigo, other Cardiovascular: ABSENT: chest pain, dyspnea on exertion, edema, orthropnea, palpitations Respiratory: ABSENT: cough, hemoptysis Gastrointestinal: ABSENT: abdominal pain, constipation, diarrhea, hematemesis, hematochezia, nausea, vomiting Genitourinary: ABSENT: dysuria, hematuria Musculoskeletal: PRESENT: deformity - related to multiple joints arthritis Integumentary: ABSENT: rash, wounds Neurological: ABSENT: abnormal gait, abnormal speech, confusion, dizziness, focal weakness, syncope Psychiatric: ABSENT: anxiety, depression, homidical ideation, suicidal ideation Endocrine: ABSENT: cold intolerance, heat intolerance, polydipsia, polyuria Hematologic/Lymphatic: ABSENT: easy bleeding, easy bruising, lymphadenopathy Physical Exam Vital Signs: Temp Pulse Resp BP Pulse Ox 98.2 F 64 13 105/68 100 06/20/17 16:53 06/20/17 16:53 06/20/17 16:53 06/20/17 16:53 06/20/17 16:53 Intake & Output 06/19/17 06/20/17 06/21/17 06:59 06:59 06:59 Weight 57.351 kg General appearance: PRESENT: no acute distress, thin Head exam: PRESENT: atraumatic, normocephalic Eye exam: PRESENT: conjunctiva pink, EOMI, PERRLA. ABSENT: scleral icterus Mouth exam: PRESENT: moist, tongue midline Throat exam: ABSENT: post pharyngeal erythema, tonsillar erythema, tonsillar exudate, tonsillogmegaly, other Neck exam: ABSENT: lymphadenopathy, tenderness, thyromegaly Respiratory exam: PRESENT: clear to auscultation karli Cardiovascular exam: PRESENT: RRR. ABSENT: diastolic murmur, rubs, systolic murmur Pulses: PRESENT: +1 pedal pulses bilateral Vascular exam: PRESENT: normal capillary refill. ABSENT: pallor GI/Abdominal exam: PRESENT: normal bowel sounds, soft. ABSENT: distended, guarding, mass, organolmegaly, rebound, tenderness Rectal exam: PRESENT: deferred Extremities exam: PRESENT: joint swelling - dorsal aspect of left foot and ankle joint, tenderness - left foot dorasal aspect to palpation. ABSENT: pedal edema Musculoskeletal exam: PRESENT: deformity - related to multiple joints involvement with arthritis, tenderness - left foot and ankle joint region Neurological exam: PRESENT: alert, awake, oriented to person, oriented to place , oriented to time, oriented to situation, CN II-XII grossly intact. ABSENT: motor sensory deficit Psychiatric exam: PRESENT: appropriate affect, normal mood. ABSENT: homicidal ideation, suicidal ideation Skin exam: PRESENT: dry, intact, warm. ABSENT: cyanosis, rash Results Laboratory Results: 06/20/17 15:35 06/20/17 15:35 06/20/17 06/20/17 15:35 15:35 WBC 5.6 RBC 4.16 L Hgb 11.1 L Hct 34.1 L MCV 82 MCH 26.8 L MCHC 32.6 RDW 14.8 H Plt Count 211 Seg Neutrophils % 56.1 Lymphocytes % 30.7 Monocytes % 10.5 Eosinophils % 1.7 Basophils % 1.0 Absolute Neutrophils 3.2 Absolute Lymphocytes 1.7 Absolute Monocytes 0.6 Absolute Eosinophils 0.1 Absolute Basophils 0.1 Sodium 140.4 Potassium 5.2 H Chloride 107 Carbon Dioxide 17 L Anion Gap 16 BUN 33 H Creatinine 1.52 H Est GFR ( Amer) 53 L Est GFR (Non-Af Amer) 44 L Glucose 75 Calcium 9.5 Total Bilirubin 0.4 AST 27 ALT 21 Alkaline Phosphatase 77 Total Protein 8.0 Albumin 4.5 06/20/17 15:35 Creatine Kinase 177 H Impressions: Ankle X-Ray 06/20/17 12:22 IMPRESSION: No acute fracture dislocation. No significant degenerative changes. Radiopaque foreign bodies in the soft tissues on the left as noted above. Other findings as noted above Foot X-Ray 06/20/17 12:23 IMPRESSION: No acute fracture dislocation. No significant degenerative changes. Radiopaque foreign bodies in the soft tissues of the left foot as noted above. Other findings as noted above Assessment & Plan - Diagnosis (1) Accidental fall Is this a current diagnosis for this admission?: Yes Plan: See admitting attending physician orders. (2) Bilateral foot pain Is this a current diagnosis for this admission?: Yes Plan: See admitting attending physician orders. (3) Carbon monoxide exposure Is this a current diagnosis for this admission?: Yes Plan: See admitting attending physician orders. (4) Acute kidney injury Is this a current diagnosis for this admission?: Yes Plan: See admitting attending physician orders. (5) Diabetes mellitus type 2 in nonobese Is this a current diagnosis for this admission?: Yes Plan: See admitting attending physician orders. (6) Essential hypertension Is this a current diagnosis for this admission?: Yes Plan: See admitting attending physician orders. (7) Hyperlipidemia Qualifiers: Hyperlipidemia type: pure hypercholesterolemia Qualified Code(s): E78.00 - Pure hypercholesterolemia, unspecified; E78.0 - Pure hypercholesterolemia Is this a current diagnosis for this admission?: Yes Plan: See admitting attending physician orders. (8) COPD (chronic obstructive pulmonary disease) Qualifiers: Emphysema type: unspecified Is this a current diagnosis for this admission?: Yes Plan: See admitting attending physician orders. (9) GERD (gastroesophageal reflux disease) Qualifiers: Esophagitis presence: esophagitis presence not specified Qualified Code(s) : K21.9 - Gastro-esophageal reflux disease without esophagitis Is this a current diagnosis for this admission?: Yes Plan: See admitting attending physician orders. (10) Malignant tumor of prostate Is this a current diagnosis for this admission?: Yes Plan: See admitting attending physician orders. (11) Osteoarthritis involving multiple joints on both sides of body Is this a current diagnosis for this admission?: Yes Plan: See admitting attending physician orders. (12) Persistent insomnia Is this a current diagnosis for this admission?: Yes Plan: See admitting attending physician orders. - Time Time Spent: 50 to 70 Minutes Medications reviewed and adjusted accordingly: Yes Anticipated discharge: Home with Homehealth Within: Other - Inpatient Certification Based on my medical assessment, after consideration of the patient's comorbidities, presenting symptoms, or acuity I expect that the services needed warrant INPATIENT care.: Yes I certify that my determination is in accordance with my understanding of Medicare's requirements for reasonable and necessary INPATIENT services [42 CFR 412.3e].: Yes Medical Necessity: Need Close Monitoring Due to Risk of Patient Decompensation, Need For IV Fluids, Need For Continuous Telemetry Monitoring, Risk of Complication if Not Cared For in Hospital Post Hospital Care: D/C Oven Tender Documentation - Plan Summary Plan Summary: See admitting attending physician orders.
[2017-06-20] MEDS ORDERED: GLUCAGON,HUMAN RECOMB 1 MG INJ IM PRN (20:22)
[2017-06-20] MEDS ORDERED: DEXTROSE 50%-WATER 25 GM/50 ML DISP.SYRIN IV PRN ×2 (20:22)
[2017-06-20] MEDS ORDERED: DEXTROSE 40% GEL 15 GM TUBE PO PRN ×2 (20:22)
[2017-06-20] MEDS: SIMVASTATIN 10 MG TABLET PO SCH (21:36)
[2017-06-20] MEDS: TRAZODONE HCL 50 MG TABLET PO SCH (21:36)
[2017-06-20] MEDS: GABAPENTIN 300 MG CAPSULE PO SCH (21:36)
[2017-06-20] MEDS: NORMAL SALINE 1000 ML 1,000 ML IV PRN (21:37)
[2017-06-20] MEDS: LATANOPROST 0.005% OPH SOLN 2.5 ML OU SCH (21:42)
[2017-06-20] MEDS: TRAMADOL HCL 50 MG TABLET PO PRN (21:53)
[2017-06-20] MEDS ORDERED: SIMVASTATIN PO SCH (22:00)
[2017-06-20] MEDS ORDERED: (PENDING PHARMACY ID) (Travoprost [Travatan Z] 1 DROP) OU SCH (22:00)
[2017-06-21 05:34] LABS: ABSOLUTE EOSINOPHILS # (AUTO) 0.1 10^3/uL (0.0-0.6); ABSOLUTE LYMPHOCYTES (AUTO) 1.7 10^3/uL (0.5-4.7); ABSOLUTE MONOCYTES (AUTO) 0.5 10^3/uL (0.1-1.4); ABSOLUTE NEUT (AUTO) 1.6 10^3/uL (1.7-8.2); BASOPHILS % (AUTO) 1.2 % (0-2); EOSINOPHILS % (AUTO) 3.6 % (0-6); HEMATOCRIT 28.3 % (37.9-51.0); HEMOGLOBIN 9.5 g/dL (13.5-17.0); LYMPHOCYTES % (AUTO) 41.5 % (13-45); MEAN CORPUSCULAR HEMOGLOBIN 27.1 pg (27.0-33.4); MEAN CORPUSCULAR HGB CONC 33.5 g/dL (32.0-36.0); MEAN CORPUSCULAR VOLUME 81 fl (80-97); MONOCYTES % (AUTO) 13.6 % (3-13); PLATELET COUNT 176 10^3/uL (150-450); RED CELL DISTRIBUTION WIDTH 14.9 % (11.5-14.0); SEGMENTED NEUTROPHILS % (AUTO) 40.1 % (42-78); TOTAL CELLS COUNTED % (AUTO) 100 %
[2017-06-21] MEDS: GABAPENTIN 300 MG CAPSULE PO SCH ×3 (05:49→21:20)
[2017-06-21] MEDS: TRAMADOL HCL 50 MG TABLET PO PRN (05:51)
[2017-06-21 06:02] LABS: ALANINE AMINOTRANSFERASE 24 U/L (21-72); ALBUMIN 3.5 g/dL (3.5-5.0); ALKALINE PHOSPHATASE 62 U/L (38-126); ANION GAP 11 (5-19); ASPARTATE AMINO TRANSFERASE 20 U/L (17-59); BILIRUBIN,DIRECT 0.2 mg/dL (0.0-0.4); BILIRUBIN,TOTAL 0.2 mg/dL (0.2-1.3); BLOOD UREA NITROGEN 33 mg/dL (7-20); CALCIUM 8.8 mg/dL (8.4-10.2); CARBON DIOXIDE 22 mmol/L (22-30); CHLORIDE 107 mmol/L (98-107); GLUCOSE 104 mg/dL (75-110); POTASSIUM 4.7 mmol/L (3.6-5.0); SODIUM 139.5 mmol/L (137-145); TOTAL PROTEIN 6.4 g/dL (6.3-8.2)
[2017-06-21] MEDS ORDERED: NATEGLINIDE PO SCH (08:00)
[2017-06-21] MEDS: RAMIPRIL 10 MG CAPSULE PO SCH (10:47)
[2017-06-21] MEDS: INSULIN LISPRO 100 UNIT/ML 3 ML VIAL SUBCUT PRN (12:50)
--- NOTE | 2017-06-21 15:21 | PDOC PROGRESS REPORT ---
Subjective Progress Note for:: 06/21/17 Subjective:: Patient reported continue difficulty with bearing weight on his left foot and not very agreeable with using walker device. Remain on IV fluid support. No chest pain or difficulty with breathing. No fever or chills. No nausea, vomiting or abdominal pain. Reason For Visit: PAIN IN BOTH FEET,EXPOSURE TO CARBON MONOXIDE Physical Exam Vital Signs: Temp Pulse Resp BP Pulse Ox 97.7 F 53 L 14 114/42 L 100 06/21/17 12:13 06/21/17 12:13 06/21/17 12:13 06/21/17 12:13 06/21/17 12:13 Intake & Output 06/20/17 06/21/17 06/22/17 06:59 06:59 06:59 Intake Total 625 Output Total 400 Balance 225 Weight 59.1 kg General appearance: PRESENT: no acute distress, well-developed, well-nourished Head exam: PRESENT: atraumatic, normocephalic Mouth exam: PRESENT: moist Respiratory exam: PRESENT: clear to auscultation karli Cardiovascular exam: PRESENT: RRR. ABSENT: diastolic murmur, rubs, systolic murmur Vascular exam: PRESENT: normal capillary refill. ABSENT: pallor GI/Abdominal exam: PRESENT: normal bowel sounds, soft. ABSENT: distended, guarding, mass, organolmegaly, rebound, tenderness Neurological exam: PRESENT: alert, awake, oriented to person, oriented to place , oriented to time, oriented to situation, CN II-XII grossly intact. ABSENT: motor sensory deficit Psychiatric exam: PRESENT: appropriate affect, normal mood. ABSENT: homicidal ideation, suicidal ideation Skin exam: PRESENT: dry, intact, warm. ABSENT: cyanosis, rash Results Laboratory Results: 06/21/17 05:23 06/21/17 05:23 06/20/17 06/20/17 06/21/17 15:35 15:35 05:23 WBC 5.6 RBC 4.16 L Hgb 11.1 L Hct 34.1 L MCV 82 MCH 26.8 L MCHC 32.6 RDW 14.8 H Plt Count 211 Seg Neutrophils % 56.1 Lymphocytes % 30.7 Monocytes % 10.5 Eosinophils % 1.7 Basophils % 1.0 Absolute Neutrophils 3.2 Absolute Lymphocytes 1.7 Absolute Monocytes 0.6 Absolute Eosinophils 0.1 Absolute Basophils 0.1 Carboxyhemoglobin Sodium 140.4 139.5 Potassium 5.2 H 4.7 Chloride 107 107 Carbon Dioxide 17 L 22 Anion Gap 16 11 BUN 33 H 33 H Creatinine 1.52 H 1.43 H Est GFR ( Amer) 53 L 57 L Est GFR (Non-Af Amer) 44 L 47 L Glucose 75 104 Calcium 9.5 8.8 Total Bilirubin 0.4 0.2 AST 27 20 ALT 21 24 Alkaline Phosphatase 77 62 Total Protein 8.0 6.4 Albumin 4.5 3.5 06/21/17 06/21/17 05:23 05:23 WBC 4.0 RBC 3.50 L Hgb 9.5 L Hct 28.3 L MCV 81 MCH 27.1 MCHC 33.5 RDW 14.9 H Plt Count 176 Seg Neutrophils % 40.1 L Lymphocytes % 41.5 Monocytes % 13.6 H Eosinophils % 3.6 Basophils % 1.2 Absolute Neutrophils 1.6 L Absolute Lymphocytes 1.7 Absolute Monocytes 0.5 Absolute Eosinophils 0.1 Absolute Basophils 0.0 Carboxyhemoglobin 1.3 Sodium Potassium Chloride Carbon Dioxide Anion Gap BUN Creatinine Est GFR ( Amer) Est GFR (Non-Af Amer) Glucose Calcium Total Bilirubin AST ALT Alkaline Phosphatase Total Protein Albumin 06/20/17 15:35 Creatine Kinase 177 H Impressions: Ankle X-Ray 06/20/17 12:22 IMPRESSION: No acute fracture dislocation. No significant degenerative changes. Radiopaque foreign bodies in the soft tissues on the left as noted above. Other findings as noted above Foot X-Ray 06/20/17 12:23 IMPRESSION: No acute fracture dislocation. No significant degenerative changes. Radiopaque foreign bodies in the soft tissues of the left foot as noted above. Other findings as noted above Assessment & Plan - Diagnosis (1) Accidental fall Is this a current diagnosis for this admission?: Yes (2) Bilateral foot pain Is this a current diagnosis for this admission?: Yes (3) Carbon monoxide exposure Is this a current diagnosis for this admission?: Yes (4) Acute kidney injury Is this a current diagnosis for this admission?: Yes (5) Diabetes mellitus type 2 in nonobese Is this a current diagnosis for this admission?: Yes (6) Essential hypertension Is this a current diagnosis for this admission?: Yes (7) Hyperlipidemia Qualifiers: Hyperlipidemia type: pure hypercholesterolemia Qualified Code(s): E78.00 - Pure hypercholesterolemia, unspecified; E78.0 - Pure hypercholesterolemia Is this a current diagnosis for this admission?: Yes (8) COPD (chronic obstructive pulmonary disease) Qualifiers: Emphysema type: unspecified Is this a current diagnosis for this admission?: Yes (9) GERD (gastroesophageal reflux disease) Qualifiers: Esophagitis presence: esophagitis presence not specified Qualified Code(s) : K21.9 - Gastro-esophageal reflux disease without esophagitis Is this a current diagnosis for this admission?: Yes (10) Malignant tumor of prostate Is this a current diagnosis for this admission?: Yes (11) Osteoarthritis involving multiple joints on both sides of body Is this a current diagnosis for this admission?: Yes (12) Persistent insomnia Is this a current diagnosis for this admission?: Yes - Time Time Spent with patient: 25-34 minutes Medications reviewed and adjusted accordingly: Yes Anticipated discharge: SNF - Inpatient Certification Based on my medical assessment, after consideration of the patient's comorbidities, presenting symptoms, or acuity I expect that the services needed warrant INPATIENT care.: Yes I certify that my determination is in accordance with my understanding of Medicare's requirements for reasonable and necessary INPATIENT services [42 CFR 412.3e].: Yes Medical Necessity: Need For IV Fluids, Need For Continuous Telemetry Monitoring , Risk of Complication if Not Cared For in Hospital Post Hospital Care: D/C or Transfer Summary - Plan Summary Plan Summary: I will request orthopedic consult with consideration of non weight bearing cam boot usage. Continue all current medication management. Possible transfer to SNF for acute rehabilitation.
[2017-06-21] MEDS: SIMVASTATIN 10 MG TABLET PO SCH (21:20)
[2017-06-21] MEDS: LATANOPROST 0.005% OPH SOLN 2.5 ML OU SCH (21:21)
[2017-06-21] MEDS: NORMAL SALINE 1000 ML 1,000 ML IV PRN (21:21)
[2017-06-21] MEDS: TRAZODONE HCL 50 MG TABLET PO SCH (21:21)
[2017-06-22] MEDS: GABAPENTIN 300 MG CAPSULE PO SCH ×3 (06:45→21:49)
[2017-06-22] MEDS: RAMIPRIL 10 MG CAPSULE PO SCH (09:49)
[2017-06-22] MEDS: TRAMADOL HCL 50 MG TABLET PO PRN (15:29)
--- NOTE | 2017-06-22 17:06 | PDOC PROGRESS REPORT ---
Subjective Progress Note for:: 06/22/17 Subjective:: Patient seen by the bedside, he has no new complaints Reason For Visit: PAIN IN BOTH FEET,EXPOSURE TO CARBON MONOXIDE Physical Exam Vital Signs: Temp Pulse Resp BP Pulse Ox 98.2 F 57 L 16 140/69 H 96 06/22/17 15:32 06/22/17 15:32 06/22/17 15:32 06/22/17 15:32 06/22/17 15:32 Intake & Output 06/21/17 06/22/17 06/23/17 06:59 06:59 06:59 Intake Total 625 2409 510 Output Total 400 150 Balance 225 2259 510 Weight 59.1 kg 57.4 kg General appearance: PRESENT: no acute distress Eye exam: PRESENT: PERRLA Respiratory exam: PRESENT: clear to auscultation karli Cardiovascular exam: PRESENT: +S1, +S2 GI/Abdominal exam: PRESENT: soft Neurological exam: PRESENT: alert Results Laboratory Results: 06/21/17 05:23 06/21/17 05:23 06/20/17 15:35 Creatine Kinase 177 H Impressions: Ankle X-Ray 06/20/17 12:22 IMPRESSION: No acute fracture dislocation. No significant degenerative changes. Radiopaque foreign bodies in the soft tissues on the left as noted above. Other findings as noted above Foot X-Ray 06/20/17 12:23 IMPRESSION: No acute fracture dislocation. No significant degenerative changes. Radiopaque foreign bodies in the soft tissues of the left foot as noted above. Other findings as noted above Assessment & Plan - Diagnosis (1) Bilateral foot pain Is this a current diagnosis for this admission?: Yes (2) Carbon monoxide exposure Is this a current diagnosis for this admission?: Yes (3) Acute kidney injury Is this a current diagnosis for this admission?: Yes - Plan Summary Plan Summary: Continue treatment
--- NOTE | 2017-06-22 17:12 | PDOC CONSULTATION ---
Consultation Consult Date: 06/22/17 Consult reason:: Left ankle pain, inability to bear weight History of Present Illness Admission Date/PCP: 06/20/17 15:07 AYLA KIRKPATRICK History of Present Illness: JUDY DOBBS JR is a 81 year old male who presents with complaints of left foot and ankle pain inability to bear weight. Patient denies any traumatic antecedent. Past Medical History Cardiac Medical History: Reports: Hypertension Denies: Myocardial Infarction Pulmonary Medical History: Reports: Chronic Obstructive Pulmonary Disease (COPD) Denies: Asthma Neurological Medical History: Denies: Seizures Endocrine Medical History: Reports: Diabetes Mellitus Type 2 GI Medical History: Denies: Hepatitis, Hiatal Hernia Psychiatric Medical History: Denies: Depression Hematology: Denies: Anemia, Sickle Cell Disease Past Surgical History Past Surgical History: Denies: Pacemaker Social History Lives with: Alone Smoking Status: Current Every Day Smoker Frequency of Alcohol Use: Social Hx Recreational Drug Use: No Drugs: None Hx Prescription Drug Abuse: No Family History Family History: Reviewed & Not Pertinent Parental Family History Reviewed: No Children Family History Reviewed: No Sibling(s) Family History Reviewed.: No Medication/Allergy Home Medications: Gabapentin 300 cap PO Q8H 08/09/15 Levocetirizine Dihydrochloride 5 mg PO DAILY 08/09/15 Nateglinide 1 tab PO MEALS 08/09/15 Pantoprazole Sodium 40 tab PO DAILY 08/09/15 Ramipril 10 cap PO DAILY 08/09/15 Simvastatin 20 tab PO QHS 08/09/15 Tolterodine Tartrate [Tolterodine Tartrate ER] 1 cap PO DAILY 08/09/15 Trazodone HCl 1 tab PO QHS 08/09/15 Hydrochlorothiazide [Hydrodiuril 25 mg Tablet] 25 mg PO QAM 06/21/17 Metformin HCl [Metformin HCl ER] 1,000 mg PO DAILY 06/21/17 Allergies/Adverse Reactions: aspirin Allergy (Verified 06/20/17 11:56) Review of Systems All systems: as per PMH Physical Exam Vital Signs: Temp Pulse Resp BP Pulse Ox 36.8 C 57 L 16 140/69 H 96 06/22/17 15:32 06/22/17 15:32 06/22/17 15:32 06/22/17 15:32 06/22/17 15:32 Intake & Output 06/21/17 06/22/1718 06:59 06:59 06:59 Intake Total 625 2409 510 Output Total 400 150 Balance 225 2259 510 Weight 59.1 kg 57.4 kg Physical Exam: Elderly black male sitting on the edge of a hospital bed eating dinner. Patient denies any current discomfort. General appearance: PRESENT: no acute distress Head exam: PRESENT: normocephalic Respiratory exam: PRESENT: unlabored Cardiovascular exam: PRESENT: RRR Pulses: PRESENT: +1 pedal pulses bilateral Vascular exam: PRESENT: normal capillary refill GI/Abdominal exam: PRESENT: soft Rectal exam: PRESENT: deferred Extremities exam: PRESENT: other - Examination of the left foot and ankle reveal no induration, no erythema, no discrete areas of reproducible tenderness. Is a full passive range of motion without discomfort. Distal neurovascular examination is intact. Neurological exam: PRESENT: alert, awake, oriented to person, oriented to place , oriented to time, oriented to situation Skin exam: PRESENT: dry, intact, warm. ABSENT: cyanosis, rash Results Laboratory Results: 06/21/17 05:23 06/21/17 05:23 06/20/17 15:35 Creatine Kinase 177 H Impressions: Ankle X-Ray 06/20/17 12:22 IMPRESSION: No acute fracture dislocation. No significant degenerative changes. Radiopaque foreign bodies in the soft tissues on the left as noted above. Other findings as noted above Foot X-Ray 06/20/17 12:23 IMPRESSION: No acute fracture dislocation. No significant degenerative changes. Radiopaque foreign bodies in the soft tissues of the left foot as noted above. Other findings as noted above Status: Imported from PACS Assessment & Plan - Diagnosis (1) Left ankle sprain Is this a current diagnosis for this admission?: Yes Plan: 81-year-old black male with left ankle pain and inability to bear weight. There is nothing on x-rays to suggest an underlying pathology. Examination likewise is not particularly revealing in terms of the underlying etiology. I am left with potential diagnosis of a left ankle sprain. Patient be placed in a cam walker and then seen by physical therapy for weightbearing as tolerated ambulation. - Time Time Spent: 50 to 70 Minutes Anticipated discharge: Other Within: Other
[2017-06-22] MEDS: LATANOPROST 0.005% OPH SOLN 2.5 ML OU SCH (21:49)
[2017-06-22] MEDS: TRAZODONE HCL 50 MG TABLET PO SCH (21:49)
[2017-06-22] MEDS: SIMVASTATIN 10 MG TABLET PO SCH (21:49)
--- NOTE | 2017-06-23 06:48 | PDOC PROGRESS REPORT ---
Subjective Progress Note for:: 06/23/17 Reason For Visit: PAIN IN BOTH FEET,EXPOSURE TO CARBON MONOXIDE 81-year-old black male with a presumed left ankle sprain. Physical Exam Vital Signs: Temp Pulse Resp BP Pulse Ox 36.7 C 58 L 17 138/50 H 97 06/23/17 03:42 06/23/17 03:42 06/23/17 03:42 06/23/17 03:42 06/23/17 03:42 Intake & Output 06/21/17 06/22/17 06/23/17 06:59 06:59 06:59 Intake Total 625 2409 790 Output Total 400 150 Balance 225 2259 790 Weight 59.1 kg 57.4 kg Results Laboratory Results: 06/21/17 05:23 06/21/17 05:23 06/20/17 15:35 Creatine Kinase 177 H Impressions: Ankle X-Ray 06/20/17 12:22 IMPRESSION: No acute fracture dislocation. No significant degenerative changes. Radiopaque foreign bodies in the soft tissues on the left as noted above. Other findings as noted above Foot X-Ray 06/20/17 12:23 IMPRESSION: No acute fracture dislocation. No significant degenerative changes. Radiopaque foreign bodies in the soft tissues of the left foot as noted above. Other findings as noted above Assessment & Plan - Diagnosis (1) Left ankle sprain Is this a current diagnosis for this admission?: Yes Plan: Awaiting delivery of the cam walker. - Time Time Spent with patient: 15-24 minutes Anticipated discharge: Other Within: Other
[2017-06-23] MEDS: GABAPENTIN 300 MG CAPSULE PO SCH ×3 (07:02→21:38)
[2017-06-23] MEDS: RAMIPRIL 10 MG CAPSULE PO SCH (10:13)
--- NOTE | 2017-06-23 17:04 | PDOC PROGRESS REPORT ---
Subjective Progress Note for:: 06/23/17 Subjective:: Patient seen by the bedside, he has no new complaints Reason For Visit: PAIN IN BOTH FEET,EXPOSURE TO CARBON MONOXIDE Physical Exam Vital Signs: Temp Pulse Resp BP Pulse Ox 99.0 F 62 18 108/48 L 95 06/23/17 16:00 06/23/17 16:00 06/23/17 16:00 06/23/17 16:00 06/23/17 16:00 Intake & Output 06/22/17 06/23/17 06/24/17 06:59 06:59 06:59 Intake Total 2409 865 Output Total 150 Balance 2259 865 Weight 57.4 kg 58 kg General appearance: PRESENT: no acute distress Eye exam: PRESENT: PERRLA Respiratory exam: PRESENT: clear to auscultation karli Cardiovascular exam: PRESENT: +S1, +S2 GI/Abdominal exam: PRESENT: soft Neurological exam: PRESENT: alert Results Laboratory Results: 06/21/17 05:23 06/21/17 05:23 06/20/17 15:35 Creatine Kinase 177 H Impressions: Ankle X-Ray 06/20/17 12:22 IMPRESSION: No acute fracture dislocation. No significant degenerative changes. Radiopaque foreign bodies in the soft tissues on the left as noted above. Other findings as noted above Foot X-Ray 06/20/17 12:23 IMPRESSION: No acute fracture dislocation. No significant degenerative changes. Radiopaque foreign bodies in the soft tissues of the left foot as noted above. Other findings as noted above Assessment & Plan - Diagnosis (1) Bilateral foot pain Is this a current diagnosis for this admission?: Yes (2) Carbon monoxide exposure Is this a current diagnosis for this admission?: Yes (3) Acute kidney injury Is this a current diagnosis for this admission?: Yes
--- NOTE | 2017-06-23 17:06 | PDOC PROGRESS REPORT ---
Subjective Progress Note for:: 06/23/17 Subjective:: Patient seen by the bedside, he has no new complaints Reason For Visit: PAIN IN BOTH FEET,EXPOSURE TO CARBON MONOXIDE Physical Exam Vital Signs: Temp Pulse Resp BP Pulse Ox 99.0 F 62 18 108/48 L 95 06/23/17 16:00 06/23/17 16:00 06/23/17 16:00 06/23/17 16:00 06/23/17 16:00 Intake & Output 06/22/17 06/23/17 06/24/17 06:59 06:59 06:59 Intake Total 2409 865 Output Total 150 Balance 2259 865 Weight 57.4 kg 58 kg General appearance: PRESENT: no acute distress Eye exam: PRESENT: PERRLA Respiratory exam: PRESENT: clear to auscultation kalri Cardiovascular exam: PRESENT: +S1, +S2 Results Laboratory Results: 06/21/17 05:23 06/21/17 05:23 06/20/17 15:35 Creatine Kinase 177 H Impressions: Ankle X-Ray 06/20/17 12:22 IMPRESSION: No acute fracture dislocation. No significant degenerative changes. Radiopaque foreign bodies in the soft tissues on the left as noted above. Other findings as noted above Foot X-Ray 06/20/17 12:23 IMPRESSION: No acute fracture dislocation. No significant degenerative changes. Radiopaque foreign bodies in the soft tissues of the left foot as noted above. Other findings as noted above Assessment & Plan - Diagnosis (1) Bilateral foot pain Is this a current diagnosis for this admission?: Yes (2) Carbon monoxide exposure Is this a current diagnosis for this admission?: Yes (3) Acute kidney injury Is this a current diagnosis for this admission?: Yes
[2017-06-23] MEDS: INSULIN LISPRO 100 UNIT/ML 3 ML VIAL SUBCUT PRN (21:33)
[2017-06-23] MEDS: LATANOPROST 0.005% OPH SOLN 2.5 ML OU SCH (21:38)
[2017-06-23] MEDS: TRAZODONE HCL 50 MG TABLET PO SCH (21:38)
[2017-06-23] MEDS: SIMVASTATIN 10 MG TABLET PO SCH (21:38)
[2017-06-24] MEDS: GABAPENTIN 300 MG CAPSULE PO SCH ×3 (05:14→21:13)
[2017-06-24] MEDS: RAMIPRIL 10 MG CAPSULE PO SCH (10:46)
--- NOTE | 2017-06-24 18:04 | PDOC PROGRESS REPORT ---
Subjective Progress Note for:: 06/24/17 Subjective:: Patient has been able to ambulate with cam walker boot. No chest pain or difficulty with breathing. No fever or chills. No nausea, vomiting or abdominal pain. Awaiting assign bed at SNF for rehabilitation. Nursing staff reported that he continue to craw to the bathroom without assistance. Reason For Visit: PAIN IN BOTH FEET,EXPOSURE TO CARBON MONOXIDE Physical Exam Vital Signs: Temp Pulse Resp BP Pulse Ox 98.3 F 79 16 109/59 L 100 06/24/17 15:23 06/24/17 15:23 06/24/17 15:23 06/24/17 15:23 06/24/17 15:23 Intake & Output 06/23/17 06/24/17 06/25/17 06:59 06:59 06:59 Intake Total 865 1060 Balance 865 1060 Weight 58 kg 56 kg Physical Exam: General appearance: PRESENT: no acute distress, well-developed, well-nourished Head exam: PRESENT: atraumatic, normocephalic Mouth exam: PRESENT: moist Respiratory exam: PRESENT: clear to auscultation karli Cardiovascular exam: PRESENT: RRR. ABSENT: diastolic murmur, rubs, systolic murmur Vascular exam: PRESENT: normal capillary refill. ABSENT: pallor GI/Abdominal exam: PRESENT: normal bowel sounds, soft. ABSENT: distended, guarding, mass, organomegaly, rebound, tenderness Neurological exam: PRESENT: alert, awake, oriented to person, oriented to place , oriented to time, oriented to situation, CN II-XII grossly intact. ABSENT: motor sensory deficit Psychiatric exam: PRESENT: appropriate affect, normal mood. ABSENT: homicidal ideation, suicidal ideation Skin exam: PRESENT: dry, intact, warm. ABSENT: cyanosis, rash Results Laboratory Results: 06/21/17 05:23 06/21/17 05:23 06/20/17 15:35 Creatine Kinase 177 H Impressions: Ankle X-Ray 06/20/17 12:22 IMPRESSION: No acute fracture dislocation. No significant degenerative changes. Radiopaque foreign bodies in the soft tissues on the left as noted above. Other findings as noted above Foot X-Ray 06/20/17 12:23 IMPRESSION: No acute fracture dislocation. No significant degenerative changes. Radiopaque foreign bodies in the soft tissues of the left foot as noted above. Other findings as noted above Assessment & Plan - Diagnosis (1) Accidental fall Is this a current diagnosis for this admission?: Yes (2) Bilateral foot pain Is this a current diagnosis for this admission?: Yes (3) Carbon monoxide exposure Is this a current diagnosis for this admission?: Yes (4) Acute kidney injury Is this a current diagnosis for this admission?: Yes (5) Diabetes mellitus type 2 in nonobese Is this a current diagnosis for this admission?: Yes (6) Essential hypertension Is this a current diagnosis for this admission?: Yes (7) Hyperlipidemia Qualifiers: Hyperlipidemia type: pure hypercholesterolemia Qualified Code(s): E78.00 - Pure hypercholesterolemia, unspecified; E78.0 - Pure hypercholesterolemia Is this a current diagnosis for this admission?: Yes (8) COPD (chronic obstructive pulmonary disease) Qualifiers: Emphysema type: unspecified Is this a current diagnosis for this admission?: Yes (9) GERD (gastroesophageal reflux disease) Qualifiers: Esophagitis presence: esophagitis presence not specified Qualified Code(s) : K21.9 - Gastro-esophageal reflux disease without esophagitis Is this a current diagnosis for this admission?: Yes (10) Malignant tumor of prostate Is this a current diagnosis for this admission?: Yes (11) Osteoarthritis involving multiple joints on both sides of body Is this a current diagnosis for this admission?: Yes (12) Persistent insomnia Is this a current diagnosis for this admission?: Yes - Time Time Spent with patient: 25-34 minutes Medications reviewed and adjusted accordingly: Yes Anticipated discharge: SNF Within: Other - Inpatient Certification Based on my medical assessment, after consideration of the patient's comorbidities, presenting symptoms, or acuity I expect that the services needed warrant INPATIENT care.: Yes I certify that my determination is in accordance with my understanding of Medicare's requirements for reasonable and necessary INPATIENT services [42 CFR 412.3e].: Yes Medical Necessity: Need Close Monitoring Due to Risk of Patient Decompensation, Need For Continuous Telemetry Monitoring, Risk of Complication if Not Cared For in Hospital Post Hospital Care: D/C or Transfer Summary - Plan Summary Plan Summary: Continue all current medication management. D/C IV fluid infusion. Encouraged to increase oral fluid intake. Possible transfer to SNF tomorrow.
[2017-06-24] MEDS: LATANOPROST 0.005% OPH SOLN 2.5 ML OU SCH (21:13)
[2017-06-24] MEDS: TRAZODONE HCL 50 MG TABLET PO SCH (21:13)
[2017-06-24] MEDS: SIMVASTATIN 10 MG TABLET PO SCH (21:13)
[2017-06-25] MEDS: GABAPENTIN 300 MG CAPSULE PO SCH (06:16)
[2017-06-25 06:24] LABS: ABSOLUTE EOSINOPHILS # (AUTO) 0.1 10^3/uL (0.0-0.6); ABSOLUTE LYMPHOCYTES (AUTO) 1.4 10^3/uL (0.5-4.7); ABSOLUTE MONOCYTES (AUTO) 0.5 10^3/uL (0.1-1.4); ABSOLUTE NEUT (AUTO) 1.3 10^3/uL (1.7-8.2); BASOPHILS % (AUTO) 1.1 % (0-2); EOSINOPHILS % (AUTO) 4.1 % (0-6); HEMATOCRIT 31.4 % (37.9-51.0); HEMOGLOBIN 10.3 g/dL (13.5-17.0); MEAN CORPUSCULAR HEMOGLOBIN 26.7 pg (27.0-33.4); MEAN CORPUSCULAR HGB CONC 32.8 g/dL (32.0-36.0); MEAN CORPUSCULAR VOLUME 81 fl (80-97); MONOCYTES % (AUTO) 13.5 % (3-13); PLATELET COUNT 175 10^3/uL (150-450); RED BLOOD COUNT 3.87 10^6/uL (4.35-5.55); RED CELL DISTRIBUTION WIDTH 14.7 % (11.5-14.0); SEGMENTED NEUTROPHILS % (AUTO) 39.3 % (42-78); TOTAL CELLS COUNTED % (AUTO) 100 %; WHITE BLOOD COUNT 3.4 10^3/uL (4.0-10.5)
[2017-06-25 06:47] LABS: ANION GAP 9 (5-19); BLOOD UREA NITROGEN 28 mg/dL (7-20); CALCIUM 9.2 mg/dL (8.4-10.2); CARBON DIOXIDE 26 mmol/L (22-30); CHLORIDE 106 mmol/L (98-107); GLUCOSE 107 mg/dL (75-110); POTASSIUM 4.7 mmol/L (3.6-5.0); SODIUM 140.9 mmol/L (137-145)
--- NOTE | 2017-06-25 08:19 | PDOC TRANSFER SUMMARY ---
General - Admit/Disc Date/PCP Admission Date/Primary Care Provider: 06/20/17 15:07 AYLA KIRKPATRICK Discharge Date: 06/25/17 - Discharge Diagnosis (1) Accidental fall Is this a current diagnosis for this admission?: Yes (2) Bilateral foot pain Is this a current diagnosis for this admission?: Yes (3) Carbon monoxide exposure Is this a current diagnosis for this admission?: Yes (4) Acute kidney injury Is this a current diagnosis for this admission?: Yes (5) Diabetes mellitus type 2 in nonobese Is this a current diagnosis for this admission?: Yes (6) Essential hypertension Is this a current diagnosis for this admission?: Yes (7) Hyperlipidemia Is this a current diagnosis for this admission?: Yes (8) COPD (chronic obstructive pulmonary disease) Is this a current diagnosis for this admission?: Yes (9) GERD (gastroesophageal reflux disease) Is this a current diagnosis for this admission?: Yes (10) Malignant tumor of prostate Is this a current diagnosis for this admission?: Yes (11) Osteoarthritis involving multiple joints on both sides of body Is this a current diagnosis for this admission?: Yes (12) Persistent insomnia Is this a current diagnosis for this admission?: Yes - Additional Information Home Medications: Gabapentin 300 cap PO Q8H 08/09/15 Levocetirizine Dihydrochloride 5 mg PO DAILY 08/09/15 Nateglinide 1 tab PO MEALS 08/09/15 Pantoprazole Sodium 40 tab PO DAILY 08/09/15 Ramipril 10 cap PO DAILY 08/09/15 Simvastatin 20 tab PO QHS 08/09/15 Tolterodine Tartrate [Tolterodine Tartrate ER] 1 cap PO DAILY 08/09/15 Trazodone HCl 1 tab PO QHS 08/09/15 Hydrochlorothiazide [Hydrodiuril 25 mg Tablet] 25 mg PO QAM 06/21/17 History of Present Illness Admission Date/PCP: 06/20/17 15:07 AYLA KIRKPATRICK Patient complains of: Difficulty with walking, Pain in leftr foot post fall at home History of Present Illness: JUDY DOBBS is a 81 year old male known to my practice brought to the ED via EMS due to difficult walking and pain in left foot and ankle since yesterday. Patient and caregiver at bedside narrated that his washing machine was malfunctioning at home. Due to patient impatient attitude he decided to take the washing machine out of his apartment by himself. In the process he tripped over the appliance cord, fell and sustained injury to his left foot. He was not able to walk thereafter and has been crawling on his four extremities within his apartment. He alerted his caregiver and she subsequently activate EMS service. His evaluation in the ED did not reveal any fracture or overt soft tissue injury. His laboratory evaluation did revealed elevated carboxyhemoglobin level and acute kidney injury indices. Attempt to discharge him home was not possible due to persistent pain in left foot and difficulty with walking. His morbidities include Diabetes mellitus type 2, Hypertension, Hyperlipidemia, COPD, Prostate cancer on q3 months Lupron therapy, GERD, Osteoarthritis, and recurrent falls. Hospital Course Hospital Course: He was managed with supplemental oxygen via nasal cannula due to his carbon monoxide poisoning from electrical malfunction in his apartment following self removal of his washing machine. His elevated serum creatinine did resolved to normal level following IV fluid hydration. Patient was seen in consultation by orthopedic surgeon with recommendation of conservative management with cam walker bolevi. He has been participating in physical therapy. His co-morbidities were adequately managed during his hospitalization. Physical Exam Vital Signs: Temp Pulse Resp BP Pulse Ox 98.8 F 49 L 18 136/67 H 100 06/24/17 20:18 06/25/17 07:00 06/24/17 20:18 06/24/17 20:18 06/24/17 20:18 Intake & Output 06/24/17 06/25/17 06/26/17 06:59 06:59 06:59 Intake Total 1060 1255 Balance 1060 1255 Weight 56 kg 58.1 kg General appearance: PRESENT: no acute distress, well-developed, well-nourished Head exam: PRESENT: atraumatic, normocephalic Eye exam: PRESENT: conjunctiva pink, EOMI, PERRLA. ABSENT: scleral icterus Mouth exam: PRESENT: moist Respiratory exam: PRESENT: clear to auscultation karli Cardiovascular exam: PRESENT: RRR. ABSENT: diastolic murmur, rubs, systolic murmur Vascular exam: PRESENT: normal capillary refill. ABSENT: pallor GI/Abdominal exam: PRESENT: normal bowel sounds, soft. ABSENT: distended, guarding, mass, organolmegaly, rebound, tenderness Musculoskeletal exam: PRESENT: deformity - related to multiple joints involvement with arthritius, tenderness - left foot improving Neurological exam: PRESENT: alert, awake, oriented to person, oriented to place , oriented to time, oriented to situation, CN II-XII grossly intact. ABSENT: motor sensory deficit Psychiatric exam: PRESENT: appropriate affect, normal mood. ABSENT: homicidal ideation, suicidal ideation Skin exam: PRESENT: dry, intact, warm. ABSENT: cyanosis, rash Results Laboratory Results: 06/25/17 06:13 06/25/17 06:13 06/25/17 06/25/17 06:13 06:13 WBC 3.4 L RBC 3.87 L Hgb 10.3 L Hct 31.4 L MCV 81 MCH 26.7 L MCHC 32.8 RDW 14.7 H Plt Count 175 Seg Neutrophils % 39.3 L Lymphocytes % 42.0 Monocytes % 13.5 H Eosinophils % 4.1 Basophils % 1.1 Absolute Neutrophils 1.3 L Absolute Lymphocytes 1.4 Absolute Monocytes 0.5 Absolute Eosinophils 0.1 Absolute Basophils 0.0 Sodium 140.9 Potassium 4.7 Chloride 106 Carbon Dioxide 26 Anion Gap 9 BUN 28 H Creatinine 1.09 Est GFR ( Amer) > 60 Est GFR (Non-Af Amer) > 60 Glucose 107 Calcium 9.2 06/20/17 15:35 Creatine Kinase 177 H Impressions: Ankle X-Ray 06/20/17 12:22 IMPRESSION: No acute fracture dislocation. No significant degenerative changes. Radiopaque foreign bodies in the soft tissues on the left as noted above. Other findings as noted above Foot X-Ray 06/20/17 12:23 IMPRESSION: No acute fracture dislocation. No significant degenerative changes. Radiopaque foreign bodies in the soft tissues of the left foot as noted above. Other findings as noted above Transfer Plan - Disposition Transfer Plan: Transfer to SNF for short term rehabilitation. Follow up in the office upon discharge from SNF. - Time Spent with Patient Time spent with patient: Less than 30 Minutes Qualifiers - * PATIENT BEING DISCHARGED WITH ANY OF THE FOLLOWING DIAGNOSIS: No Plan Discharge Plan: Transfer to SNF for short term rehabilitation. Follow up in the office upon discharge from SNF. Time Spent: Greater than 30 Minutes - Patient demonstrate full understanding of his discharge plan, post discharge care plan and follow up in the office upon discharge from SNF.
[2017-06-25] MEDS: RAMIPRIL 10 MG CAPSULE PO SCH (10:00)
[2017-06-25 12:23] VITALS: BP 107/87
== END 2017-06-25 13:50 | DRG 563 ==
LOC: ER 11:36 → EH 15:07 → OBSVTOIN 15:07 → 4S 16:49
PROVIDERS: ADMIT Internal Medicine Geriatric Medicine; ATTEND Internal Medicine Geriatric Medicine
DX: S93.402A Sprain of unspecified ligament of left ankle, initial encounter (principal); N17.9 Acute kidney failure, unspecified; M25.572 Pain in left ankle and joints of left foot; M25.571 Pain in right ankle and joints of right foot; I10 Essential (primary) hypertension; E11.9 Type 2 diabetes mellitus without complications; C61 Malignant neoplasm of prostate; J44.9 Chronic obstructive pulmonary disease, unspecified; E78.00 Pure hypercholesterolemia, unspecified; K21.9 Gastro-esophageal reflux disease without esophagitis; M79.5 Residual foreign body in soft tissue; T75.89XA Other specified effects of external causes, initial encounter; G47.00 Insomnia, unspecified; M19.90 Unspecified osteoarthritis, unspecified site; F17.210 Nicotine dependence, cigarettes, uncomplicated; W01.0XXA Fall on same level from slipping, tripping and stumbling without subsequent striking against object, initial encounter; Y93.89 Activity, other specified; Y92.038 Other place in apartment as the place of occurrence of the external cause; Z60.2 Problems related to living alone
CPT/HCPCS: 36415; 80048; 80053; 82375; 82550; 82962; 85025; 93005; 93010; 99285; G8978-GP; G8979-GP; J1815; J3490; J7030; L4386

== ENCOUNTER 2018-06-25 23:03 | Emergency (ER) | payer MEDICARE, MEDICAID ==
[2018-06-26] MEDS ORDERED: DIPH/PERTUSS(ACELL)/TETANUS VAC/PF 0.5 ML SYR (>=10YO) IM ONE (02:12)
[2018-06-26] MEDS ORDERED: LIDOCAINE 1% INJ-PF (10 MG/ML) 30 ML SDV INJ ONE (02:13)
--- NOTE | 2018-06-26 02:14 | ER Document Report ---
ED General - General Chief Complaint: Back Injury Stated Complaint: FALL/BACK PAIN Time Seen by Provider: 06/26/18 01:46 Primary Care Provider: AYLA KIRKPATRICK MD [Primary Care Provider] - Follow up as needed Mode of Arrival: Ambulatory Information source: Patient, [facility] Records Notes: 82-year-old male with hypertension, COPD, type 2 diabetes presents after a slip and fall at home. Patient states that he was walking down his hallway when he slipped, fell on broken glass. Denies any head injury, loss of consciousness. Is complaining of left flank pain. Denies any preceding chest pain, shortness of breath, dizziness. TRAVEL OUTSIDE OF THE [place] IN LAST 30 DAYS: No - HPI Onset: Just prior to arrival Onset/Duration: Sudden Quality of pain: Achy Severity: Mild Associated symptoms: denies: Chest pain, Nonproductive cough, Productive cough, Nausea, Vomiting, Shortness of breath, Weakness Exacerbated by: Movement Relieved by: Denies Similar symptoms previously: No Recently seen / treated by doctor: No - Related Data Allergies/Adverse Reactions: aspirin Allergy (Verified 06/20/17 11:56) Past Medical History - General Information source: Patient, [facility] Records - Social History Smoking Status: Never Smoker Chew tobacco use (# tins/day): No Frequency of alcohol use: None Drug Abuse: None Lives with: Alone Family History: Reviewed & Not Pertinent Patient has suicidal ideation: No Patient has homicidal ideation: No - Past Medical History Cardiac Medical History: Reports: Hx Hypertension Denies: Hx Heart Attack Pulmonary Medical History: Reports: Hx COPD Denies: Hx Asthma Neurological Medical History: Denies: Hx Cerebrovascular Accident, Hx Seizures Endocrine Medical History: Reports: Hx Diabetes Mellitus Type 2 Renal/ Medical History: Denies: Hx Peritoneal Dialysis GI Medical History: Denies: Hx Hepatitis, Hx Hiatal Hernia, Hx Ulcer Psychiatric Medical History: Denies: Hx Depression Infectious Medical History: Denies: Hx Hepatitis Past Surgical History: Denies: Hx Open Heart Surgery, Hx Pacemaker - Immunizations Hx Diphtheria, Pertussis, Tetanus Vaccination: No Hx Pneumococcal Vaccination: 12/05/14 Review of Systems - Review of Systems Notes: REVIEW OF SYSTEMS: CONSTITUTIONAL : Denies fever, chills, or sweats. Denies recent illness. Denies weight loss, recent hospitalizations. EENT: Denies visual changes, eye pain. Denies sore throat, oral lesions, difficulty swallowing. CARDIOVASCULAR: Denies chest pain. Denies palpitations. Denies lower extremity edema. RESPIRATORY: Denies cough. Denies shortness of breath, wheezing. GASTROINTESTINAL: Denies abdominal pain or distention. Denies nausea, vomiting, or diarrhea. Denies blood in vomitus, stools, or per rectum. Denies black, tarry stools. Denies constipation. GENITOURINARY: Denies difficulty urinating, painful urination, frequency, blood in urine, testicular pain or penile discharge. MUSCULOSKELETAL: Denies back or neck pain or stiffness. Denies joint pain or swelling. SKIN: + Laceration left flank HEMATOLOGIC : Denies easy bruising or bleeding. LYMPHATIC: Denies swollen glands. NEUROLOGICAL: Denies confusion or altered mental status. Denies loss of consciousness. Denies dizziness or lightheadedness. Denies headache. Denies weakness or paralysis. Denies problems difficulty with ambulation, slurred speech. Denies sensory loss, numbness, or tingling. Denies seizures. PSYCHIATRIC: Denies anxiety or stress. Denies depression, suicidal ideation, or Physical Exam - Vital signs Vitals: Temp Pulse Resp BP Pulse Ox 98.2 F 71 18 161/81 H 97 06/25/18 23:06 06/25/18 23:06 06/25/18 23:06 06/25/18 23:06 06/25/18 23:06 - Notes Notes: PHYSICAL EXAMINATION: GENERAL: Well-appearing, well-nourished and in no acute distress. C collar in place. On backboard. GCS 15 HEAD: Atraumatic, normocephalic. EYES: Pupils equal round and reactive to light, extraocular movements intact, sclera anicteric, conjunctiva are normal. ENT: Nares patent, oropharynx clear without exudates. Moist mucous membranes. No hemanotympanum . No blood in nares. No dental fracture NECK: Normal range of motion, supple without lymphadenopathy. Trachea midline LUNGS: Breath sounds clear to auscultation bilaterally and equal. No wheezes rales or rhonchi. HEART: Regular rate and rhythm without murmurs. Pulses intact all throughout. ABDOMEN: Soft, nontender, nondistended abdomen. No guarding, no rebound. No masses appreciated. Musculoskeletal: Normal range of motion, no pitting or edema. No cyanosis. Hip non tender, stable. NEUROLOGICAL: Cranial nerves grossly intact. Normal speech, normal gait. Normal sensory, motor, and reflex exams. PSYCH: Normal mood, normal affect. SKIN: 3 cm superficial linear laceration to the left flank. Course - Re-evaluation Re-evalutation: 06/26/18 03:[address] 06/26/18 01:50 IMPRESSION: No CT evidence for acute C-spine abnormality TECHNICAL DOCUMENTATION: Quality ID # 436: Final reports with documentation of one or more dose reduction techniques (e.g., Automated exposure control, adjustment of the mA and/or kV according to patient size, use of iterative reconstruction technique) copyright 2010 [employer]- All Rights Reserved Head CT 06/26/18 01:50 IMPRESSION: Mild atrophy and small vessel ischemic change. Left maxillary sinusitis TECHNICAL DOCUMENTATION: Quality ID # 436: Final reports with documentation of one or more dose reduction techniques (e.g., Automated exposure control, adjustment of the mA and/or kV according to patient size, use of iterative reconstruction technique) copyright 2010 [employer]- All Rights Reserved KUB X-Ray 06/26/18 01:52 IMPRESSION: Abundant stool in the colon copyright 2010 [employer]- All Rights Reserved Temp Pulse Resp BP Pulse Ox 98.2 F 71 18 161/81 H 97 06/25/18 23:06 06/25/18 23:06 06/25/18 23:06 06/25/18 23:06 06/25/18 23:06 82-year-old male presents after a slip and fall landing on glass. Vital signs reviewed and within normal limits. Patient does not appear toxic or dehydrated. He is in no acute distress. Exam is significant for a 3 cm laceration to the left flank. No foreign body appreciated on exploration. Suture repair was performed with 4.0 Ethilon. 5 simple sutures were placed. Patient tolerated this well. CT of the head and neck showed no acute process. KUB showed abundant stool in the colon. Patient was evaluated and treated as appropriate for the patient's presenting symptoms and complaint, with consideration of any critical or life threatening conditions that may be associated with their obtained history and exam as noted above. All results were discussed with patient and... Patient provided the opportunity to ask questions, and express concerns. Patient was educated on treatments based on their presumed diagnosis as noted above. At this time we will discharge the patient with return precautions and follow-up recommendations. Verbal discharge instructions given a the bedside. Medication warnings reviewed. Patient is in agreement with this plan and has verbalized understanding of return precautions. After careful consideration I feel that that patient can be safely discharged from the emergency department, they were advised to followup with a primary care physician in 2-3 days. Dictation on this chart was performed using voice recognition software and may result in unintended grammatical, spelling, syntax or errors. Presentation of a well appearing elderly patient in no acute distress, vitals within normal limits after a mechanical fall. Patient denies a syncopal episode as the cause for today's fall. No focal neurologic deficits on exam, no evidence of basilar skull fracture on exam without evidence of hemotympanum, raccoon eyes, or periauricular hematoma. No papilledema. Patient is not on anticoagulation. GCS is 15. No loss of consciousness. No episodes of vomiting. However, based on patient's age a CT of the head has been obtained which is negative for any acute intracranial bleed. Likewise, patient was unable to be clinically cleared due to age by [place] cervical spine criteria. A CT of the cervical spine was also obtained and likewise is negative for any acute fracture. No indication for further imaging of the cervical spine. Patient has no focal deformities or limited range of motion in any joint space. Chest and abdominal exam are benign without any focal tenderness, shortness of breath, or bruising over the chest or abdominal wall. Patient has no flank tenderness. There is no obvious findings on trauma exam today and therefore no further imaging or evaluation will be obtained at this time. At this time will discharge with return precautions and follow-up recommendations. Verbal discharge instructions given a the bedside and opportunity for questions given. Medication warnings reviewed. Patient is in agreement with this plan and has verbalized understanding of return precautions and the need for primary care follow-up in the next 24-72 hours. - Vital Signs Vital signs: Temp Pulse Resp BP Pulse Ox 98.2 F 71 18 161/81 H 97 06/25/18 23:06 06/25/18 23:06 06/25/18 23:06 06/25/18 23:06 06/25/18 23:06 - Diagnostic Test Radiology reviewed: Image reviewed, Reports reviewed Procedures - Laceration/Wound Repair Left Back Time completed: 03:24 Wound length (cm): 3 Wound's Depth, Shape: Linear Laceration pre-procedure: Sterile PPE donned, Sterile drapes applied Anesthetic type: 1% Lidocaine Volume Anesthetic (mLs): 8 Wound explored: Clean, No foreign body removed Irrigated w/ Saline (mLs): 500 Wound Repaired With: Sutures Suture Size/Type: 4:0, Ethilon Number of Sutures: 5 Layer Closure?: No Post-procedure wound care: Sterile dressing applied Discharge - Discharge Clinical Impression: Laceration of left flank Qualifiers: Encounter type: initial encounter Qualified Code(s): S31.119A - Laceration without foreign body of abdominal wall, unspecified quadrant without penetration into peritoneal cavity, initial encounter Fall Qualifiers: Encounter type: initial encounter Qualified Code(s): W19.XXXA - Unspecified fall, initial encounter Condition: Good Disposition: HOME, SELF-CARE Instructions: Ice Packs ([facility]) Additional Instructions: You have been seen in the Emergency Department (ED) today following a fall. Your workup today did not reveal any injuries that require you to stay in the hospital. You can expect, though, to be stiff and sore for the next several days. You can take Tylenol 1000 mg every 6 hours as needed for pain. You can apply a hot pack or electric heating pad to the sore areas. You can also use topical "Aspercreme with lidocaine" to sore areas as needed. Please follow up with your primary care doctor as soon as possible regarding today's ED visit and your recent fall. Call your doctor or return to the ED if you develop a sudden or severe headache, confusion, slurred speech, facial droop, weakness or numbness in any arm or leg, extreme fatigue, vomiting more than two times, severe abdominal pain, or other symptoms that concern you. Please return to your primary doctor, the ED, or an urgent care in 10 days for suture removal. Return immediately if you develop spreading redness around the wound, pus from the wound, worsening pain, or a fever of >100.4. Keep the area clean and dry. Wash gently with soap and water twice daily and cover with antibiotic ointment. Forms: Elevated Blood Pressure Referrals: AYLA KIRKPATRICK MD [Primary Care Provider] - Follow up as needed
--- NOTE | 2018-06-26 02:54 | RADIOLOGY REPORT (SQ) ---
EXAM DESCRIPTION: CT CERVICAL SPINE WITHOUT IV CONTRAST COMPLETED DATE/TME: 06/26/2018 01:50 CLINICAL HISTORY: 82 years, Male, fall COMPARISON: None. TECHNIQUE: 250 Images stored on PACS. All CT scanners at this facility use dose modulation, iterative reconstruction, and/or weight based dosing when appropriate to reduce radiation dose to as low as reasonably achievable (ALARA). [facility]: Dose Right [facility]: CareDose [facility]: Dose Right [facility]: Teradose 4D [facility]: [employer] LIMITATIONS: None. FINDINGS: Evaluation of spinal canal contents limited due to CT technique. Vertebral body height and alignment is preserved. Endplate degenerative changes with osteophytic spurring and facet arthropathy throughout the cervical spine. Prevertebral soft tissues are normal IMPRESSION: No CT evidence for acute C-spine abnormality TECHNICAL DOCUMENTATION: Quality ID # 436: Final reports with documentation of one or more dose reduction techniques (e.g., Automated exposure control, adjustment of the mA and/or kV according to patient size, use of iterative reconstruction technique) copyright 2011 [employer]- All Rights Reserved
--- NOTE | 2018-06-26 02:57 | RADIOLOGY REPORT (SQ) ---
EXAM DESCRIPTION: CT HEAD WITHOUT IV CONTRAST COMPLETED DATE/TME: 06/26/2018 01:50 CLINICAL HISTORY: 82 years, Male, fall COMPARISON: 09/04/2016 CT TECHNIQUE: 195 Images stored on PACS. All CT scanners at this facility use dose modulation, iterative reconstruction, and/or weight based dosing when appropriate to reduce radiation dose to as low as reasonably achievable (ALARA). [facility]: Dose Right [facility]: CareDose [facility]: Dose Right [facility]: Teradose 4D [facility]: [employer] LIMITATIONS: None. FINDINGS: The globes are intact. Opacification of the left maxillary sinus with left maxillary sinus air-fluid level. No displaced or depressed skull fracture. No intra or extra-axial hemorrhage. CT is limited for evaluation of acute infarct. No CT evidence for large or territorial acute infarct. No mass or midline shift. Chronic changes to the bony calvarium in the high parietal regions bilaterally. Mild diffuse atrophy and small vessel ischemic change IMPRESSION: Mild atrophy and small vessel ischemic change. Left maxillary sinusitis TECHNICAL DOCUMENTATION: Quality ID # 436: Final reports with documentation of one or more dose reduction techniques (e.g., Automated exposure control, adjustment of the mA and/or kV according to patient size, use of iterative reconstruction technique) copyright 2010 [employer]- All Rights Reserved
--- NOTE | 2018-06-26 02:58 | RADIOLOGY REPORT (SQ) ---
EXAM DESCRIPTION: XR ABDOMEN 1 VIEW (KUB) COMPLETED DATE/TME: 06/26/2018 01:52 CLINICAL HISTORY: 82 years, Male, lac l flank fell on glass COMPARISON: 11/23/2015 abdomen NUMBER OF VIEWS: 2 TECHNIQUE: AP abdomen LIMITATIONS: None. FINDINGS: Nonspecific dense of the bowel gas pattern. Abundant stool in the colon. Osteopenia. Evaluation for free air limited on a supine view IMPRESSION: Abundant stool in the colon copyright 2010 [employer]- All Rights Reserved
[2018-06-26 03:40] VITALS: BP 160/85
== END 2018-06-26 03:40 | disposition home or self-care (01) ==
LOC: ER 23:03
PROC: 0HQ6XZZ Repair Back Skin, External Approach (ICD-10-PCS; principal; 2018-06-25)
DX: S31.119A Laceration without foreign body of abdominal wall, unspecified quadrant without penetration into peritoneal cavity, initial encounter (principal); R10.9 Unspecified abdominal pain; W01.110A Fall on same level from slipping, tripping and stumbling with subsequent striking against sharp glass, initial encounter; I10 Essential (primary) hypertension; J44.9 Chronic obstructive pulmonary disease, unspecified; E11.9 Type 2 diabetes mellitus without complications
CPT/HCPCS: 70450; 72125; 74018; 90471; 90715; 99283

== ENCOUNTER 2018-09-02 19:38 | Emergency (ER) | payer MEDICARE, MEDICAID ==
--- NOTE | 2018-09-02 21:50 | RADIOLOGY REPORT (SQ) ---
XR RIBS UNILATERAL WITH CHEST EXAM DATE: 09/02/2018 12:00 AM CDT HISTORY: Rib pain. COMPARISON: None. FINDINGS/IMPRESSION: No displaced rib fractures are seen. The surrounding lungs are clear. No pneumothorax or pleural effusions are seen. Old healed left-sided clavicular and multiple old left-sided rib fractures. IMPRESSION: No acute displaced right-sided rib fractures are seen. If there is high clinical concern or point tenderness, consider CT scan.
[2018-09-03] MEDS ORDERED: HYDROCODONE/ACETAMINOPHEN 5-325 MG TABLET PO ONE (00:50)
[2018-09-03] MEDS ORDERED: ONDANSETRON 4 MG TAB.RAPDIS PO ONE (00:50)
--- NOTE | 2018-09-03 00:57 | ER Document Report ---
ED Medical Screen (RME) - General Chief Complaint: Fall Injury Stated Complaint: FALL, RIGHT RIB PAIN Time Seen by Provider: 09/03/18 00:49 Primary Care Provider: AYLA KIRKPATRICK MD [Primary Care Provider] - Follow up as needed Notes: 82-year-old male chief complaint of fall injury, he states he fell out of a doorway, fell 4 feet down onto a cinder block, cinderblock hit his right upper ribs and he also hit the back of his head on the ground. He denies getting knocked out, focal numbness or weakness, vomiting. He is not on a blood thinner. Family at bedside. TRAVEL OUTSIDE OF THE [place] IN LAST 30 DAYS: No - Related Data Allergies/Adverse Reactions: aspirin Allergy (Verified 06/20/17 11:56) Past Medical History - Past Medical History Cardiac Medical History: Reports: Hx Hypertension Denies: Hx Heart Attack Pulmonary Medical History: Reports: Hx COPD Denies: Hx Asthma Neurological Medical History: Denies: Hx Cerebrovascular Accident, Hx Seizures Endocrine Medical History: Reports: Hx Diabetes Mellitus Type 2 Renal/ Medical History: Denies: Hx Peritoneal Dialysis GI Medical History: Denies: Hx Hepatitis, Hx Hiatal Hernia, Hx Ulcer Psychiatric Medical History: Denies: Hx Depression Infectious Medical History: Denies: Hx Hepatitis Past Surgical History: Denies: Hx Open Heart Surgery, Hx Pacemaker - Immunizations Hx Diphtheria, Pertussis, Tetanus Vaccination: No History of Influenza Vaccine for 11/2016 - 04/2017 Season: Unknown Physical Exam - Vital signs Vitals: Temp Pulse Resp BP Pulse Ox 99.2 F 63 12 158/122 H 90 L 09/02/18 20:01 09/02/18 20:01 09/02/18 20:01 09/02/18 20:01 09/02/18 20:01 - HEENT Head: Normocephalic, Atraumatic - Respiratory Chest status: Tender - Very tender over the right upper ribs over the lateral aspect in the mid axillary line, no crepitus, swelling, or bruising noted Course - Re-evaluation Re-evalutation: X-ray is negative, however patient is very tender over the right upper ribs, he hit his head, he is 82 years old. Because of the concerning injury with the fall 4 feet onto cinderblock CAT scans will be performed. Pulse oxygenation rechecked, it is not 90, it is 99% on room air. I have greeted and performed a rapid initial assessment of this patient. A comprehensive ED assessment and evaluation of the patient, analysis of test results and completion of the medical decision making process will be conducted by additional ED providers. - Vital Signs Vital signs: Temp Pulse Resp BP Pulse Ox 99.2 F 63 12 158/122 H 90 L 09/02/18 20:01 09/02/18 20:01 09/02/18 20:01 09/02/18 20:01 09/02/18 20:01 Doctor's Discharge - Discharge Referrals: AYLA KIRKPATRICK MD [Primary Care Provider] - Follow up as needed
[2018-09-03 01:46] LABS: ABSOLUTE BASOPHILS # (AUTO) 0.1 10^3/uL (0.0-0.2); ABSOLUTE EOSINOPHILS # (AUTO) 0.1 10^3/uL (0.0-0.6); ABSOLUTE LYMPHOCYTES (AUTO) 1.7 10^3/uL (0.5-4.7); ABSOLUTE MONOCYTES (AUTO) 0.5 10^3/uL (0.1-1.4); ABSOLUTE NEUT (AUTO) 2.9 10^3/uL (1.7-8.2); BASOPHILS % (AUTO) 1.2 % (0-2); EOSINOPHILS % (AUTO) 1.9 % (0-6); HEMATOCRIT 34.1 % (37.9-51.0); HEMOGLOBIN 11.1 g/dL (13.5-17.0); LYMPHOCYTES % (AUTO) 33.2 % (13-45); MEAN CORPUSCULAR HEMOGLOBIN 26.6 pg (27.0-33.4); MEAN CORPUSCULAR HGB CONC 32.6 g/dL (32.0-36.0); MEAN CORPUSCULAR VOLUME 81 fl (80-97); PLATELET COUNT 228 10^3/uL (150-450); RED BLOOD COUNT 4.19 10^6/uL (4.35-5.55); RED CELL DISTRIBUTION WIDTH 15.5 % (11.5-14.0); SEGMENTED NEUTROPHILS % (AUTO) 54.7 % (42-78); TOTAL CELLS COUNTED % (AUTO) 100 %; WHITE BLOOD COUNT 5.2 10^3/uL (4.0-10.5)
[2018-09-03 02:05] LABS: ANION GAP 9 (5-19); BLOOD UREA NITROGEN 17 mg/dL (7-20); CALCIUM 9.4 mg/dL (8.4-10.2); CARBON DIOXIDE 27 mmol/L (22-30); CHLORIDE 104 mmol/L (98-107); GLUCOSE 131 mg/dL (75-110)
--- NOTE | 2018-09-03 02:35 | RADIOLOGY REPORT (SQ) ---
CLINICAL HISTORY: fell 4 ft onto cinder block, right rib/chest pain. CREAT 1.52 COMPARISON: None. TECHNIQUE: CT CHEST WITH IV CONTRAST on 09/03/2018 12:49 AM CDT. MIPS reconstructions were generated. This exam was performed according to our departmental dose-optimization program, which includes automated exposure control, adjustment of the mA and/or kV according to patient size and/or use of iterative reconstruction technique. MIP images were generated. FINDINGS: Thoracic aorta is normal in course and caliber without aneurysm or dissection. Pulmonary arteries are adequately opacified without acute or chronic filling defects. The heart is normal in size. There is no pericardial effusion. Intrathoracic lymph nodes are not enlarged. 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 There is no pleural effusion, pleural thickening or pneumothorax. Central airways are patent. There is bibasilar scarring and atelectasis. There is no focal consolidation. There are no acute abnormalities within the limited images of the upper abdomen. There are multiple old fractures of the anterolateral upper left ribs. There is an acute-appearing posterior nondisplaced fracture of the right seventh rib. IMPRESSION: Nondisplaced posterior right seventh rib fracture.
--- NOTE | 2018-09-03 02:36 | RADIOLOGY REPORT (SQ) ---
CT head without contrast on 09/03/2018 at 1:58 AM CLINICAL INDICATION: Fall, head injury, per protocol for mechanism of injury TECHNIQUE: Multiple axial images are obtained throughout the head without the administration of contrast. This exam was performed according to our departmental dose-optimization program, which includes automated exposure control, adjustment of the mA and/or kV according to patient size and/or use of iterative reconstruction technique. Total DLP is 1056.39 mGy*cm. COMPARISON: 06/26/2018 FINDINGS: There is mild generalized cerebral atrophy. There is low-density in the periventricular white matter consistent with chronic small vessel ischemic changes. There is no CT evidence of acute infarct. There is again noted chronic thinning of the parietal calvarium bilaterally. There is no hemorrhage. There are no abnormal extra-axial fluid collections. There is no mass, mass effect or midline shift. Mild left maxillary sinus disease is noted. No acute bony abnormality is noted. IMPRESSION: Stable examination with no acute intracranial abnormality.
--- NOTE | 2018-09-03 02:40 | RADIOLOGY REPORT (SQ) ---
EXAM DESCRIPTION: CT CERVICAL SPINE WITHOUT IV CONTRAST COMPLETED DATE/TME: 09/03/2018 00:53 EXAM DESCRIPTION: CT of the cervical spine without contrast. CLINICAL HISTORY: fall, head injury, pain COMPARISON: 06/26/2018 TECHNIQUE: Axial CT of the cervical spine obtained without contrast. FINDINGS: Alignment of the cervical spine is maintained without evidence of subluxation. The atlantoaxial, atlantodental, and occipitoatlantal intervals are preserved. No acute fracture identified. Prevertebral soft tissues are unremarkable. Multilevel loss of intervertebral disc height with endplate spondylosis, facet arthropathy, and uncovertebral spurring. Degenerative change of the atlantodental articulation. Visualized skull base is intact. No fracture of the visualized facial bones. Visualized mastoid air cells and paranasal sinuses are well aerated. Visualized thyroid is unremarkable. No cervical lymphadenopathy. No pneumothorax in the visualized lung apices. Centrilobular emphysematous change in the visualized lung apices. Atherosclerotic vascular calcification. DLP: 253.73 mGy-cm IMPRESSION: 1. No acute fracture or subluxation of the cervical spine. 2. Multilevel degenerative change of the cervical spine. This exam was performed according to our departmental dose-optimization program, which includes automated exposure control, adjustment of the mA and/or kV according to patient size and/or use of iterative reconstruction technique.
--- NOTE | 2018-09-03 03:39 | ER Document Report ---
ED Fall - General Chief Complaint: Fall Injury Stated Complaint: FALL, RIGHT RIB PAIN Time Seen by Provider: 09/03/18 00:49 Primary Care Provider: AYLA KIRKPATRICK MD [Primary Care Provider] - Follow up in 3-5 days Notes: Patient is a 82-year-old male chief complaint of fall injury, he states he fell out of a doorway, fell 4 feet down onto a cinder block, cinderblock hit his right side/ribs and he also hit the back of his head on the ground. He denies getting knocked out, focal numbness or weakness, vomiting. He is not on a blood thinner. Family at bedside. TRAVEL OUTSIDE OF THE [place] IN LAST 30 DAYS: No - Related data Allergies/Adverse Reactions: aspirin Allergy (Verified 06/20/17 11:56) Past Medical History - General Information source: Patient - Social History Smoking Status: Never Smoker Frequency of alcohol use: None Drug Abuse: None Lives with: Alone Family History: Reviewed & Not Pertinent - Past Medical History Cardiac Medical History: Reports: Hx Hypertension Denies: Hx Heart Attack Pulmonary Medical History: Reports: Hx COPD Denies: Hx Asthma Neurological Medical History: Denies: Hx Cerebrovascular Accident, Hx Seizures Endocrine Medical History: Reports: Hx Diabetes Mellitus Type 2 Renal/ Medical History: Denies: Hx Peritoneal Dialysis GI Medical History: Denies: Hx Hepatitis, Hx Hiatal Hernia, Hx Ulcer Psychiatric Medical History: Denies: Hx Depression Infectious Medical History: Denies: Hx Hepatitis Past Surgical History: Denies: Hx Open Heart Surgery, Hx Pacemaker - Immunizations Immunizations up to date: Yes Hx Diphtheria, Pertussis, Tetanus Vaccination: Yes Hx Pneumococcal Vaccination: 12/05/14 Review of Systems - Review of Systems Constitutional: No symptoms reported EENT: No symptoms reported Cardiovascular: No symptoms reported Respiratory: No symptoms reported Gastrointestinal: No symptoms reported Genitourinary: No symptoms reported Male Genitourinary: No symptoms reported Musculoskeletal: See HPI Skin: No symptoms reported Hematologic/Lymphatic: No symptoms reported Neurological/Psychological: See HPI Physical Exam - Vital signs Vitals: Temp Pulse Resp BP Pulse Ox 99.2 F 63 12 158/122 H 90 L 09/02/18 20:01 09/02/18 20:01 09/02/18 20:01 09/02/18 20:01 09/02/18 20:01 - Notes Notes: GENERAL: Alert, interacts well. No acute distress. Patient moves with some discomfort. HEAD: Normocephalic, atraumatic. EYES: Pupils equal, round, and reactive to light. Extraocular movements intact. ENT: Oral mucosa moist, tongue midline. Oropharynx unremarkable. Airway patent. Nares patent, no nasal septal hematoma, TM's intact. NECK: Full range of motion. Supple. Trachea midline. LUNGS: Clear to auscultation bilaterally, no wheezes, rales, or rhonchi. No respiratory distress. Tender over the general right ribs over the lateral aspect and posteriorly, however there is no contusion, swelling, crepitus. HEART: Regular rate and rhythm. No murmur ABDOMEN: Soft, non-tender. Non-distended. Bowel sounds present in all 4 quadrants. GENITOURINARY: Deferred EXTREMITIES: Moves all 4 extremities spontaneously. No edema, normal radial and dorsalis pedis pulses bilaterally. No cyanosis. BACK: no cervical, thoracic, lumbar midline tenderness. No saddle anesthesia, normal distal neurovascular exam. Moves all extremities in full range of motion. NEUROLOGICAL: Alert and oriented x3. Normal speech. Cranial nerves II through XII grossly intact. PSYCH: Normal affect, normal mood. SKIN: Warm, dry, normal turgor. No rashes or lesions noted. Course - Re-evaluation Re-evalutation: Patient reports head trauma, I do not see any traumatic findings of the head, however because of his age CT of the head and neck was performed but was negative for any acute findings. X-ray was negative for fracture, however patient was very tender over the area, because of his described fall and age along with the tenderness CAT scan was performed of the chest with contrast. CBC, chemistry generally unremarkable. CT of the chest showing rib fracture without any other concerning findings. Patient and son are very anxious to leave. He was provided with incentive spirometer, pain medication, stool softener, and we discussed follow-up, expectations, and return precautions. Son and patient asked for more help at home, pillowcase maker consult was placed at his discussion of this. Pulse ox recorded as 90 initially, I rechecked it and it was 99 at bedside, at discharge it is 100% on room air. Stable time of discharge. Patient and son state satisfaction agreement. - Vital Signs Vital signs: Temp Pulse Resp BP Pulse Ox 98.2 F 60 16 156/55 H 100 09/03/18 03:58 09/03/18 03:58 09/03/18 03:58 09/03/18 03:58 09/03/18 03:58 - Laboratory Result Diagrams: 09/03/18 01:30 09/03/18 01:30 Laboratory results interpreted by me: 09/03/18 09/03/18 01:30 01:30 RBC 4.19 L Hgb 11.1 L Hct 34.1 L MCH 26.6 L RDW 15.5 H Creatinine 1.29 H Est GFR (Non-Af Amer) 53 L Glucose 131 H Discharge - Discharge Clinical Impression: Fall Qualifiers: Encounter type: initial encounter Qualified Code(s): W19.XXXA - Unspecified fall, initial encounter Head injury Qualifiers: Encounter type: initial encounter Qualified Code(s): S09.90XA - Unspecified injury of head, initial encounter Fractured rib Qualifiers: Encounter type: initial encounter Rib fracture type: single rib Fracture type: closed Laterality: right Qualified Code(s): S22.31XA - Fracture of one rib, right side, initial encounter for closed fracture Condition: Stable Disposition: HOME, SELF-CARE Additional Instructions: There is a right sided seventh rib fracture seen on imaging. No additional concerning findings were noted. This will be very sore, this will take about 6 weeks to heal. Take the pain medication provided if needed, if you do take this also take the stool softener to avoid constipation. We have a pillowcase maker consult placed, they will be contacting you to see how they can assist. Make sure you use the incentive spirometry several times a day to avoid pneumonia. Follow-up closely with your primary care provider for additional management. Return if you worsen including vomiting, fever, passing out, difficulty breathing, or any other concerning symptoms. Prescriptions: Docusate Sodium [Colace 100 mg Capsule] 100 mg PO ASDIR PRN #30 capsule PRN Reason: Hydrocodone/Acetaminophen [[place] 5-325 mg Tablet] 1 - 2 tab PO ASDIR PRN #15 tablet PRN Reason: Referrals: AYLA KIRKPATRICK MD [Primary Care Provider] - Follow up in 3-5 days
[2018-09-03 04:07] VITALS: BP 156/55
== END 2018-09-03 04:10 | disposition home or self-care (01) ==
LOC: ER 19:38
DX: S09.90XA Unspecified injury of head, initial encounter (principal); S22.31XA Fracture of one rib, right side, initial encounter for closed fracture; R07.81 Pleurodynia; W13.8XXA Fall from, out of or through other building or structure, initial encounter; I10 Essential (primary) hypertension; E11.9 Type 2 diabetes mellitus without complications
CPT/HCPCS: 99284; 36415; 85025; 80048; 71101; 70450; 71260; 72125; A9270 ×2; S0119